=== PATIENT | male | born 1955 | race Caucasian/White ===

== ENCOUNTER → 2019-09-25 08:08 | Outpatient (CLI) | payer BC, SELFPAY ==
--- NOTE | 2019-09-25 08:10 | DI.RAD.S_ITS ---
PROCEDURE: XR LUMBAR SPINE 2-3V INDICATIONS: Back pain TECHNIQUE: 3 views of the lumbar spine were acquired. COMPARISON: None. FINDINGS: Bones: 5 [id number] vertebrae are present. There is normal bony alignment. No vertebral body compression fractures. No suspicious bony lesions. Severe chronic disc loss at L5-S1. Bilateral hip degenerative change, left greater than right. Soft tissues: Overlying bowel gas pattern is normal. No suspicious soft tissue calcifications. IMPRESSION: 1. Lower lumbar degenerative disc disease. 2. Bilateral hip degenerative arthritis, left greater than right. 3. No evidence acute bony abnormality of the lumbar spine. If clinical suspicion and/or symptoms persist, further assessment with repeat plain films, or advanced imaging (e.g., CT, MRI, or bone scan) may be helpful for further assessment. Dictated by: Norberto Schafer M.D. on 09/25/2019 at 9:40 Approved by: Norberto Schafer M.D. on 09/25/2019 at 9:41
[2019-09-25 09:49] LABS: Alanine Aminotransferase 22 IU/L (<50); Albumin 4.2 g/dL (3.5-5.0); Albumin Globulin Ratio 1.4 (1.0-2.8); Alkaline Phosphatase 48 U/L (38-126); Aspartate Aminotransferase 36 IU/L (17-59); BUN Creatinine Ratio 27.1 (6-22); Bilirubin Total 0.4 mg/dL (0.2-1.3); Blood Urea Nitrogen 19 mg/dL (9-20); Calcium 9.7 mg/dL (8.4-10.2); Carbon Dioxide 28 mmol/L (22-32); Chloride 103 mmol/L (98-107); Cholesterol 226 mg/dL (140-199); Estimated Glomerular Filt Rate > 60.0 mL/min (>60); Glucose 94 mg/dL (80-110); HDL Cholesterol 54 mg/dL (40-60); HEMOLYSIS < 15 (0-50); LDL Cholesterol Calculated 159 mg/dL (<100); Potassium 4.9 mmol/L (3.4-5.1); Sodium 140 mmol/L (137-145); Total Protein 7.2 g/dL (6.3-8.2); Triglycerides 64 mg/dL (35-150)
[2019-09-25 09:50] LABS: Hemoglobin A1C% w Est Avg Glu 5.3 % (4.0-6.0)
[2019-09-25 10:21] LABS: Prostate Specific Antigen Scrn 0.758 ng/mL (0.1-4.0)
== END ==
PROVIDERS: PCP Family Medicine; Referring Provider Family Medicine; Visit Provider Family Medicine
DX: M54.5 Low back pain (principal); Z76.89 Persons encountering health services in other specified circumstances
CPT/HCPCS: 36415; 72100; 80053; 80061; 83036; G0103

== ENCOUNTER 2020-05-04 17:22 | Observation (INO) | payer BC, SELFPAY ==
[2020-05-04] VITALS (13 sets, daily range): BP systolic 95–150; BP diastolic 51–91; PULSE 49–77; RESP 10–24; TEMP 35.7–36.6; O2SAT 94–100; BMI 21.7
[2020-05-04 17:46] LABS: Add Manual Diff / Slide Review NO; Basophils Absolute Auto 100 /uL (0-100); Basophils Percent Auto 0.7 % (0-2); Eosinophils Absolute Auto 200 /uL (0-450); Hematocrit 39.6 % (41-53); Hemoglobin 13.7 g/dL (13.5-17.5); Lymphocytes Absolute Auto 3400 /uL (1100-4500); Lymphocytes Percent Auto 36.4 % (25-40); Mean Corpuscular HGB Conc 34.5 % (30-36); Mean Corpuscular Hemoglobin 32.2 PG (26-34); Mean Corpuscular Volume 93.4 fL (80-100); Monocytes Absolute Auto 1100 /uL (0-900); Monocytes Percent Auto 11.4 % (3-14); Neutrophils Absolute Auto 4700 /uL (1500-7000); Neutrophils Percent Auto 49.5 % (50-75); Platelet Count 394 X10^3/uL (150-400); Red Blood Cell Count 4.24 X10^6/uL (4.5-5.9); Red Cell Distribution Width 13.9 % (11.6-14.8); White Blood Cell Count 9.4 X10^3/uL (4.5-11.0)
[2020-05-04 17:48] LABS: Prothrombin Time 11.8 SECONDS (10.1-12.7)
[2020-05-04 17:50] LABS: PTT Partial Thromboplastin Tim 28 SECONDS (26.4-36.2)
[2020-05-04 17:52] LABS: Alanine Aminotransferase 24 IU/L (<50); Albumin 4.3 g/dL (3.5-5.0); Albumin Globulin Ratio 1.3 (1.0-2.8); Alkaline Phosphatase 67 U/L (38-126); Aspartate Aminotransferase 35 IU/L (17-59); BUN Creatinine Ratio 21.5 (6-22); Bilirubin Total 0.5 mg/dL (0.2-1.3); Blood Urea Nitrogen 17 mg/dL (9-20); Calcium 9.5 mg/dL (8.4-10.2); Carbon Dioxide 25 mmol/L (22-32); Chloride 104 mmol/L (98-107); Estimated Glomerular Filt Rate > 60.0 mL/min (>60); Globulin 3.3 g/dL (1.7-4.1); Glucose 121 mg/dL (80-110); HEMOLYSIS < 15 (0-50); Lipase 74 U/L (23-300); Potassium 3.5 mmol/L (3.4-5.1); Sodium 139 mmol/L (137-145); Total Protein 7.6 g/dL (6.3-8.2)
[2020-05-04] MEDS: HYDROMORPHONE 1 MG INJ IV ×2 (17:53→18:58)
--- NOTE | 2020-05-04 17:54 | PC.NURSE ---
Patient placed in trendelenburg with ice pack to groin at this time per request from Dr. Del Rio.
--- NOTE | 2020-05-04 18:17 | ED.ABDPAIN ---
HPI - Abdominal Pain General Chief Complaint: Abdominal Pain Stated Complaint: Severe Abd Pain, Possible Hernia Time Seen by Provider: 05/04/20 18:15 Source: patient Mode of arrival: Ambulatory Limitations: no limitations History of Present Illness HPI narrative: 65-year-old male nonsmoker with noncontributory medical history presents with a chief complaint of severe right groin pain over the past few hours. He has a history of prior hernias requiring surgical repair and states this feels very similar to those. He admits to a large bulge in his groin that he 1st noticed few hours ago. He does not have any recall of any bulge or suggestion of pain over the past days weeks or months but he has been doing extensive heavy labor, lifting heavy objects and whatnot. He denies any fever or chills. He denies any nausea or vomiting. He is still passing gas. His last food or drink was at about 2:00 p.m.. He denies any exposure to persons known to have COVID. He has had bilateral inguinal hernia repair, his right hernia was repaired in 2012 and mesh was used. MD complaint: abdominal pain and other Onset (ago): hour(s) Pain Consistency: constant Location: RLQ Severity: severe Quality: cramping and aching Radiation: none Relieving factors: rest Exacerbating factors: movement Associated symptoms: denies other symptoms Related Data Home Medications Medication Instructions Recorded Confirmed cholecalciferol (vitamin D3) 1 tab PO DAILY 09/24/19 05/04/20 coenzyme Q10 1 tab PO DAILY 09/24/19 05/04/20 cyanocobalamin (vitamin B-12) 1 tab PO DAILY 09/24/19 05/04/20 multivitamin with iron 1 tab PO DAILY 09/24/19 05/04/20 vitamin E acetate 1 tab PO DAILY 09/24/19 05/04/20 Allergies Allergy/AdvReac Type Severity Reaction Status Date / Time No Known Drug Allergies Allergy Verified 05/04/20 19:54 Review of Systems Constitutional Constitutional: Denies chills, Denies fatigue, Denies fever(s), Denies frequent falls, Denies lethargy and Denies weakness Eyes Eyes: Denies change in vision, Denies eye discharge, Denies irritation and Denies loss of vision ENT Ears, Nose, Mouth, and Throat: Denies change in voice, Denies dizziness, Denies neck pain, Denies sore throat and Denies throat swelling Cardiovascular Cardiovascular: Denies chest pain, Denies irregular heart rhythm, Denies lightheadedness, Denies palpitations, Denies dyspnea, Denies dyspnea on exertion and Denies orthopnea Respiratory Respiratory: Denies cough, Denies dyspnea, Denies dyspnea on exertion and Denies wheezing Gastrointestinal Gastrointestinal: Reports abdominal pain, Denies change in bowel habits, Denies diarrhea, Denies nausea and Denies vomiting Musculoskeletal Musculoskeletal: Denies neck pain and Denies numbness Integumentary/Breasts Skin/Breast: Denies pruritus, Denies erythema, Denies rash and Denies wounds Neurologic Neurologic: Denies behavioral changes, Denies confusion, Denies dizziness, Denies frequent falls, Denies loss of vision, Denies numbness and Denies weakness Psychiatric Psychiatric: Denies anxiety, Denies behavioral changes, Denies confusion, Denies depression, Denies homicidal ideation and Denies suicidal ideation Endocrine Endocrine: Denies fatigue, Denies flushing and Denies palpitations Hematologic/Lymphatic Hematologic/Lymphatic: Denies easy bruising Allergic/Immunologic Allergic/Immunologic: Denies urticaria, Denies throat swelling and Denies wheezing Patient History Medical History Chicken pox (Resolved) Chronic lower back pain (Acute) Headache (Chronic ~2018) Kidney stones (Inactive ~2016) Shoulder pain (Chronic ~1989) Skin lesion (Acute) Wears glasses (Chronic) Surgical History Anesthesia (Resolved) H/O right wrist surgery (Resolved ~2006) History of hand surgery (Resolved ~2004) History of hernia surgery (Resolved) History of knee surgery (Resolved ~2000) History of shoulder surgery (Resolved) Ruptured spleen (Resolved ~1971) Family History Father Lung cancer Mother Stroke Brother Cancer Grandmother Stroke Social History household members: spouse Smoking Status: Never smoker alcohol intake: current substance use type: does not use Smoking Status: Never smoker Exam Initial Vital Signs Initial Vital Signs: Vital Signs Pulse Rate 74 05/04/20 17:32 Respiratory Rate 24 05/04/20 17:32 Blood Pressure 143/87 H 05/04/20 17:32 Pulse Oximetry 100 05/04/20 17:32 Course Course Decision to Admit Date: 05/04/20 Decision to Admit time: 18:38 Orders Ordered: ED Orders 05/04/20 17:35 Complete Blood Count AUTO DIFF Stat Comprehensive Metabolic Panel Stat Lipase Stat Partial Thromboplastin Time Stat Prothrombin Time INR Stat 05/04/20 17:50 EKG-12 Lead Stat 05/04/20 18:42 CT abdomen pelvis w con Stat 05/04/20 18:45 COVID19 -ED/INPAT/OR/L&D Stat Acetaminophen (Tylenol) 975 mg PO PACUNOW PRN PRN Reason: Pain, Mild (1-3) Lactated Ringer's (Lactated Ringers) 1,000 mls @ 120 mls/hr IV CONT AUGUST Last Admin: 05/04/20 22:08 Dose: 120 mls/hr Documented by: DAIANA Ketorolac Tromethamine (Toradol) 30 mg IV Q6HR PRN PRN Reason: Pain, Severe (7-10) Stop: 05/09/20 21:23 Naloxone HCl (Narcan) 0.2 mg IV Q2MIN PRN PRN Reason: Opiate Reversal Ondansetron HCl (Zofran) 4 mg IV Q8HR PRN PRN Reason: Nausea And Vomiting Oxycodone HCl (Percolone) 5 mg PO Q6HR PRN PRN Reason: Pain, Moderate (4-6) Last Admin: 05/05/20 00:34 Dose: 5 mg Documented by: RIMMA Discontinued Medications Bupivacaine HCl (Sensorcaine 0.25% (Pf)) 30 ml INJ NOW ONE Stop: 05/04/20 20:56 Last Admin: 05/04/20 20:55 Dose: 30 ml Documented by: SHRUTHI Fentanyl (Sublimaze) 0 mcg IV Q5MIN PRN PRN Reason: Pain, Severe (7-10) Hydromorphone HCl (Dilaudid) 1 mg IV NOW ONE Stop: 05/04/20 17:48 Last Admin: 05/04/20 17:53 Dose: 1 mg Documented by: MICAELA Hydromorphone HCl (Dilaudid) 1 mg IV NOW ONE Stop: 05/04/20 18:54 Last Admin: 05/04/20 18:58 Dose: 1 mg Documented by: TAVO Hydromorphone HCl (Dilaudid) 0 mg IV Q5MIN PRN PRN Reason: Pain, Mild (1-3) Lactated Ringer's (Lactated Ringers) 1,000 mls @ 42 mls/hr IV CONT AUGUST Last Infusion: 05/04/20 21:39 Dose: 0 mls/hr Documented by: Admin: 05/04/20 21:28 Dose: 42 mls/hr Documented by: Infusion: 05/04/20 21:28 Dose: 42 mls/hr Documented by: Admin: 05/04/20 20:01 Dose: 42 mls/hr Documented by: ALISTAIR Cefazolin Sodium/Dextrose (Ancef) 2 gm in 100 mls @ 200 mls/hr IV NOW ONE Stop: 05/04/20 20:55 Last Infusion: 05/04/20 20:11 Dose: 0 mls/hr Documented by: Admin: 05/04/20 20:05 Dose: 200 mls/hr Documented by: FELA Meperidine HCl (Demerol) 12.5 mg IV PACUNOW PRN PRN Reason: Mild pain or shivering Ondansetron HCl (Zofran) 4 mg IV NOW PRN PRN Reason: Nausea And Vomiting Oxycodone HCl (Percolone) 5 mg PO PACUNOW PRN PRN Reason: Mild or moderate pain Vital Signs Vital signs: Vital Signs - 8 hr 05/04/20 17:32 Pulse Rate 74 Respiratory Rate 24 Blood Pressure 143/87 H Pulse Oximetry 100 MDM - Abdominal Pain Lab Data Result diagrams: 05/04/20 17:35 05/04/20 17:35 Labs: Lab Results 05/04/20 05/04/20 05/04/20 Range/Units 17:35 17:35 17:35 WBC 9.4 (4.5-11.0) X10^3/uL RBC 4.24 L (4.5-5.9) X10^6/uL Hgb 13.7 (13.5-17.5) g/dL Hct 39.6 L (41-53) % MCV 93.4 (80-100) fL MCH 32.2 (26-34) PG MCHC 34.5 (30-36) % RDW 13.9 (11.6-14.8) % Plt Count 394 (150-400) X10^3/uL Neut % (Auto) 49.5 L (50-75) % Lymph % (Auto) 36.4 (25-40) % [place] % (Auto) 11.4 (3-14) % Eos % (Auto) 2.0 (2-4) % Baso % (Auto) 0.7 (0-2) % Neut # (Auto) 4700 (5557-3592) /uL Lymph # (Auto) 3400 (7412-3635) /uL [place] # (Auto) 1100 H (0-900) /uL Eos # (Auto) 200 (0-450) /uL Baso # (Auto) 100 (0-100) /uL PT 11.8 (10.1-12.7) SECONDS INR 1.0 (0.9-1.3) APTT 28 (26.4-36.2) SECONDS Sodium 139 (137-145) mmol/L Potassium 3.5 (3.4-5.1) mmol/L Chloride 104 (98-107) mmol/L Carbon Dioxide 25 (22-32) mmol/L BUN 17 (9-20) mg/dL Creatinine 0.79 (0.66-1.25) mg/dL Estimated GFR > 60.0 (>60) mL/min BUN/Creatinine Ratio 21.5 (6-22) Glucose 121 H (80-110) mg/dL Calcium 9.5 (8.4-10.2) mg/dL Total Bilirubin 0.5 (0.2-1.3) mg/dL AST 35 (17-59) IU/L ALT 24 (<50) IU/L Alkaline Phosphatase 67 (38-126) U/L Total Protein 7.6 (6.3-8.2) g/dL Albumin 4.3 (3.5-5.0) g/dL Globulin 3.3 (1.7-4.1) g/dL Albumin/Globulin Ratio 1.3 (1.0-2.8) Lipase 74 (23-300) U/L COVID-19 PCR (Negative) 05/04/20 Range/Units 18:45 WBC (4.5-11.0) X10^3/uL RBC (4.5-5.9) X10^6/uL Hgb (13.5-17.5) g/dL Hct (41-53) % MCV (80-100) fL MCH (26-34) PG MCHC (30-36) % RDW (11.6-14.8) % Plt Count (150-400) X10^3/uL Neut % (Auto) (50-75) % Lymph % (Auto) (25-40) % [place] % (Auto) (3-14) % Eos % (Auto) (2-4) % Baso % (Auto) (0-2) % Neut # (Auto) (7563-0405) /uL Lymph # (Auto) (0712-2054) /uL [place] # (Auto) (0-900) /uL Eos # (Auto) (0-450) /uL Baso # (Auto) (0-100) /uL PT (10.1-12.7) SECONDS INR (0.9-1.3) APTT (26.4-36.2) SECONDS Sodium (137-145) mmol/L Potassium (3.4-5.1) mmol/L Chloride (98-107) mmol/L Carbon Dioxide (22-32) mmol/L BUN (9-20) mg/dL Creatinine (0.66-1.25) mg/dL Estimated GFR (>60) mL/min BUN/Creatinine Ratio (6-22) Glucose (80-110) mg/dL Calcium (8.4-10.2) mg/dL Total Bilirubin (0.2-1.3) mg/dL AST (17-59) IU/L ALT (<50) IU/L Alkaline Phosphatase (38-126) U/L Total Protein (6.3-8.2) g/dL Albumin (3.5-5.0) g/dL Globulin (1.7-4.1) g/dL Albumin/Globulin Ratio (1.0-2.8) Lipase (23-300) U/L COVID-19 PCR Negative (Negative) Imaging Data CT scan - abdomen/pelvis: Radiologist's Impression: Chart Viewer Diagnostics DATE TYPE STATUS REF RANGE/AUTHOR Hx 05/04/20 18:42 Zhang Chance 09/25/19 08:10 Norberto Schafer Gary W 65, M0 1955 REG ER, [facility] ED R10 72.575kg Abdominal Pain Search Chart No Data to Display NF - Not included in interaction checking ONSET ~2018 ~1989 Today 17:32 Edgar Paris W 65 M [address] [address] [address] Scan Report Signed Patient: Edgar Paris WMR#: [id number] : [id number]:[id number] Age/Sex: 65 / MDate of Service: 05/04/20 Loc: ED Accession Number: [id number] Procedure: CT abdomen pelvis w con Ordering Provider: Johnnie Frank D.O. PROCEDURE: CT ABDOMEN PELVIS W CON INDICATIONS: severe RLQ pain, incarcerated hernia TECHNIQUE: After the administration of intravenous contrast, 5 mm thick sections acquired from the diaphragm to the symphysis. 5 mm coronal and sagittal reformats were acquired. For radiation dose reduction, the following was used: automated exposure control, adjustment of mA and/or kV according to patient size. COMPARISON: None. FINDINGS: Image quality: Excellent. ABDOMEN: Lung bases: Bibasilar dependent atelectasis/scarring are seen. Heart size is enlarged, no pericardial effusion. Solid organs: Liver is enlarged and show normal enhancement.. Gallbladder is within normal limits. Biliary system is non dilated. Pancreas enhances normally. Spleen is not visualized which may represent prior splenectomy possible 1.8 centimeter splenule is noted in left upper quadrant abdomen. No adrenal nodules. Kidneys demonstrate normal size and enhancement, without hydronephrosis. 3 millimeter nonobstructing stone in midpole of left kidney is seen. Bilateral peripelvic cysts are noted. Peritoneum and bowel: There is significant fecal stasis in ascending colon. Fluid distended small bowel loops are noted in right lower quadrant abdomen/pelvis with fluid distended bowel loops extending to the level of right inguinal herniation sac. There is no peritoneal free fluid or free air. No abnormal bowel wall thickening. Nodes and vessels: No retroperitoneal or mesenteric adenopathy by size criteria. Aorta and inferior vena cava are normal in size. Miscellaneous: No ventral hernias. PELVIS: Genitourinary: Bladder wall thickness is normal. Miscellaneous: No inguinal lymphadenopathy. Right inguinal hernia is seen containing a segment of dilated small bowel loop with questionable wall thickening and adjacent fat stranding. Decompressed of small-bowel loops exiting the herniation sac is noted with fluid distended bowel loops proximal to the herniation sac concerning for incarcerated hernia. Bones: No suspicious bony lesions. No vertebral body compression fractures. IMPRESSION: 1. Right inguinal hernia containing a segment of fluid distended small bowel loops and mild mesenteric fat stranding within herniation sac. Finding is concerning for developing incarcerated right inguinal hernia. No other area of abnormal bowel wall thickening. No free fluid or free air. 2. Fecal stasis in right colon. 3. Suggestion of prior splenectomy. 1.8 centimeter splenule is noted in left upper quadrant abdomen. Hepatomegaly, no discrete hepatic lesion. 4. Nonobstructing left renal calculus. No hydronephrosis. 5. Bibasilar dependent atelectasis. Dictated by: Zhang Chance M.D. on 05/04/2020 at 19:23 Approved by: Zhang Chance M.D. on 05/04/2020 at 19:28 Discharge Plan Departure Patient Disposition: Admitted to Surgery Clinical Impression: Incarcerated inguinal hernia Discharge Date/Time: 05/04/20 19:50 Admit Date/Time: 05/04/20 19:37 Admit Provider: Calin Pickard
--- NOTE | 2020-05-04 18:42 | DI.CT.S_ITS ---
PROCEDURE: CT ABDOMEN PELVIS W CON INDICATIONS: severe RLQ pain, incarcerated hernia TECHNIQUE: After the administration of intravenous contrast, 5 mm thick sections acquired from the diaphragm to the symphysis. 5 mm coronal and sagittal reformats were acquired. For radiation dose reduction, the following was used: automated exposure control, adjustment of mA and/or kV according to patient size. COMPARISON: None. FINDINGS: Image quality: Excellent. ABDOMEN: Lung bases: Bibasilar dependent atelectasis/scarring are seen. Heart size is enlarged, no pericardial effusion. Solid organs: Liver is enlarged and show normal enhancement.. Gallbladder is within normal limits. Biliary system is non dilated. Pancreas enhances normally. Spleen is not visualized which may represent prior splenectomy possible 1.8 centimeter splenule is noted in left upper quadrant abdomen. No adrenal nodules. Kidneys demonstrate normal size and enhancement, without hydronephrosis. 3 millimeter nonobstructing stone in midpole of left kidney is seen. Bilateral peripelvic cysts are noted. Peritoneum and bowel: There is significant fecal stasis in ascending colon. Fluid distended small bowel loops are noted in right lower quadrant abdomen/pelvis with fluid distended bowel loops extending to the level of right inguinal herniation sac. There is no peritoneal free fluid or free air. No abnormal bowel wall thickening. Nodes and vessels: No retroperitoneal or mesenteric adenopathy by size criteria. Aorta and inferior vena cava are normal in size. Miscellaneous: No ventral hernias. PELVIS: Genitourinary: Bladder wall thickness is normal. Miscellaneous: No inguinal lymphadenopathy. Right inguinal hernia is seen containing a segment of dilated small bowel loop with questionable wall thickening and adjacent fat stranding. Decompressed of small-bowel loops exiting the herniation sac is noted with fluid distended bowel loops proximal to the herniation sac concerning for incarcerated hernia. Bones: No suspicious bony lesions. No vertebral body compression fractures. IMPRESSION: 1. Right inguinal hernia containing a segment of fluid distended small bowel loops and mild mesenteric fat stranding within herniation sac. Finding is concerning for developing incarcerated right inguinal hernia. No other area of abnormal bowel wall thickening. No free fluid or free air. 2. Fecal stasis in right colon. 3. Suggestion of prior splenectomy. 1.8 centimeter splenule is noted in left upper quadrant abdomen. Hepatomegaly, no discrete hepatic lesion. 4. Nonobstructing left renal calculus. No hydronephrosis. 5. Bibasilar dependent atelectasis. Dictated by: Zhang Chance M.D. on 05/04/2020 at 19:23 Approved by: Zhang Chance M.D. on 05/04/2020 at 19:28
[2020-05-04 19:22] LABS: COVID19 -Nasal RAPID Negative (Negative)
--- NOTE | 2020-05-04 19:40 | PM.HP.1 ---
History of Present Illness History of Present Illness Date Patient Seen: 05/04/20 Time Patient Seen: 19:41 Chief complaint: Severe Abd Pain, Possible Hernia Narrative: This is a 65-year-old man seen in consultation for a incarcerated right inguinal hernia. He has history of a prior open inguinal hernia repair with mesh 2012 and he presents with several hours of severe right groin pain. Mild nausea no vomiting is passing flatus. CT demonstrates a loop of small bowel within the right groin. It was unable to be manually reduced in the emergency room. 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 Nonsmoker not on anticoagulation no major cardio pulmonary of renal disease. Patient History Medical History Chicken pox (Resolved) Chronic lower back pain (Acute) Headache (Chronic ~2018) Kidney stones (Inactive ~2016) Shoulder pain (Chronic ~1989) Skin lesion (Acute) Wears glasses (Chronic) Surgical History Anesthesia (Resolved) H/O right wrist surgery (Resolved ~2006) History of hand surgery (Resolved ~2004) History of hernia surgery (Resolved) History of knee surgery (Resolved ~2000) History of shoulder surgery (Resolved) Ruptured spleen (Resolved ~1971) Family & Social History Family History Father Lung cancer Mother Stroke Brother Cancer Grandmother Stroke Tobacco & Substance use: Smoking Status Never smoker alcohol intake current Meds Home Medications and Allergies Home Medications Medication Instructions Recorded Confirmed Type cholecalciferol (vitamin D3) PO 09/24/19 10/21/19 History coenzyme Q10 PO 09/24/19 10/21/19 History cyanocobalamin (vitamin B-12) PO 09/24/19 10/21/19 History multivitamin with iron PO 09/24/19 10/21/19 History vitamin E acetate PO 09/24/19 10/21/19 History Allergies Allergy/AdvReac Type Severity Reaction Status Date / Time No Known Drug Allergies Allergy Verified 10/21/19 08:15 Review of Systems Review of Systems Narrative: A 10 point review of systems is negative except as noted in the HPI Exam Vital Signs (past 8 hours): - 05/04/20 17:32 Pulse Rate 74 Respiratory Rate 24 Blood Pressure 143/87 H Pulse Oximetry 100 Oxygen Delivery Method Room Air Narrative Exam Narrative: General-no acute distress, well nourished HEENT-moist mucous membranes, no scleral icterus Neck-supple, no lymphadenopathy Chest- non labored respirations, clear to auscultation bilaterally Cardiac-regular rate no peripheral edema Abdomen-tender right groin non reducible right inguinal hernia. Extremities-warm, well perfused Neurological-alert and oriented, no focal deficits Objective Labs Result Diagrams: 05/04/20 17:35 05/04/20 17:35 Labs: Laboratory Results - last 24 hr 05/04/20 05/04/20 05/04/20 17:35 17:35 17:35 WBC 9.4 RBC 4.24 L Hgb 13.7 Hct 39.6 L MCV 93.4 MCH 32.2 MCHC 34.5 RDW 13.9 Plt Count 394 Neut % (Auto) 49.5 L Lymph % (Auto) 36.4 [place] % (Auto) 11.4 Eos % (Auto) 2.0 Baso % (Auto) 0.7 Neut # (Auto) 4700 Lymph # (Auto) 3400 [place] # (Auto) 1100 H Eos # (Auto) 200 Baso # (Auto) 100 PT 11.8 INR 1.0 APTT 28 Sodium 139 Potassium 3.5 Chloride 104 Carbon Dioxide 25 BUN 17 Creatinine 0.79 Estimated GFR > 60.0 BUN/Creatinine Ratio 21.5 Glucose 121 H Calcium 9.5 Total Bilirubin 0.5 AST 35 ALT 24 Alkaline Phosphatase 67 Total Protein 7.6 Albumin 4.3 Globulin 3.3 Albumin/Globulin Ratio 1.3 Lipase 74 COVID-19 PCR 05/04/20 18:45 WBC RBC Hgb Hct MCV MCH MCHC RDW Plt Count Neut % (Auto) Lymph % (Auto) [place] % (Auto) Eos % (Auto) Baso % (Auto) Neut # (Auto) Lymph # (Auto) [place] # (Auto) Eos # (Auto) Baso # (Auto) PT INR APTT Sodium Potassium Chloride Carbon Dioxide BUN Creatinine Estimated GFR BUN/Creatinine Ratio Glucose Calcium Total Bilirubin AST ALT Alkaline Phosphatase Total Protein Albumin Globulin Albumin/Globulin Ratio Lipase COVID-19 PCR Negative Assessment & Plan Assessment and plan (1) Incarcerated inguinal hernia: Status: Acute Assessment & Plan narrative: 65-year-old man history of a right open inguinal hernia repair here with a recurrent incarcerated right inguinal hernia. Hernia is non reducible. Reviewed his CT scan which demonstrates a loop of small bowel within the right groin. I recommend that we proceed to the operating room for a open right inguinal hernia repair. I told him that if the intestine is compromised he may require resection and if this is the case we would be unable to use mesh in the repair. I also told him that because he has previous mesh the groin that the repair/operation is more difficult with increased risk of chronic pain, recurrence, damage to surrounding structures. I told him there is a risk I am unable to complete the operation through the groin and he may require a laparotomy. His questions have been answered he is in agreement with this plan will proceed to the operating room and he will remain under observation following the procedure.
[2020-05-04] MEDS: LACTATED RINGERS 1,000 ML 42 ML IV ×2 (20:01→21:28)
[2020-05-04] MEDS: CEFAZOLIN 2 GM/100 ML FROZ.PIGGY IV (20:05)
--- NOTE | 2020-05-04 20:22 | SUR.OPER ---
Supine on padded OR bed, head on pillow, arms secured on padded arm boards at <90 degrees abduction, legs uncrossed, safety belt at thigh, tape over blanket over lower legs.
[2020-05-04] MEDS: BUPIVACAINE 0.25% (PF) VIAL 30 ML INJ (20:55)
--- NOTE | 2020-05-04 21:24 | P.OP_ITS ---
Operative Date/Time/Diagnoses Date of procedure: 05/04/20 Time of procedure: 21:24 Pre-op diagnosis: Recurrent incarcerated right inguinal hernia Post-op diagnosis: same Procedure & Clinicians Procedure: Open right inguinal hernia repair Same procedure as scheduled: Yes Indications: 65-year-old male history of open right inguinal hernia repair with mesh presents with acute right inguinal hernia incarceration. Surgeon: Calin Pickard Click Yes if Unassisted: Yes Anesthesia Type: General Operative Notes Findings: Direct floor defect. Previous mesh entirely incorporated into the inguinal canal fusing the cord to the floor of the canal Specimen(s): none sent Procedure in detail: The patient was placed supine on the table and bilateral lower extremity compression devices were applied. Anesthesia was induced they were intubated with an LMA and received 2g of Ancef. A time-out was performed. They were prepped and draped in sterile fashion. The right external inguinal ring and the anterior superior iliac crest were identified and marked. 1 finger breath above the inguinal ligament the skin was infiltrated with 0.25% bupivacaine. The skin incision was made here and the subcutaneous tissues were divided with electrocautery exposing the external oblique aponeurosis which was then opened along the direction of its fibers. Using blunt dissection the internal oblique aporneurosis was from the external oblique upper leaflet. The anatomy was exceptionally distorted within the inguinal canal secondary to the previous use of mesh. The cord was entirely fused to the floor of the inguinal canal. I spent a great deal of time trying to carefully dissect the cord off of the mesh but was unable to do so safely and I was unable to identify the indiviual cord structures. I was able to comfortably reduce the hernia which appeared to be a direct floor defect. Rather than damage the cord content I abandoned been further attempts to dissect out the cord from the inguinal canal. I was able to reduce the direct floor defect by reapproximating the internal oblique to the shelving edge of the inguinal ligament using 0 Ethibond suture. I then closed the external oblique aponeurosis in the direction of its fibers. The subcutaneous tissues were reapproximated with 3 0 Vicryl skin closed with 4 0 Monocryl followed by the application of Dermabond. At the end of the operation I ensured that both testicles were within the scrotum. The sponge instrument count at the end operation was correct. The p atient emerged from anesthesia was extubated and transferred to the postoperative care unit in stable condition. A total of 30 ml of of 0.25% bupivicaine was used to infiltrate the skin. Complications: none Post-operative Condition: stable Disposition: observation
[2020-05-04] MEDS: LACTATED RINGERS 1,000 ML 120 ML IV (22:08)
[2020-05-05 00:06] VITALS: BP 116/64; PULSE 59; RESP 16; TEMP 36.3; O2SAT 97
[2020-05-05 00:30] VITALS: O2SAT 97
[2020-05-05] MEDS: OXYCODONE IR 5 MG TABLET PO (00:34)
[2020-05-05 05:00] VITALS: O2SAT 95
[2020-05-05] MEDS: LACTATED RINGERS 1,000 ML 120 ML IV (06:00)
[2020-05-05 06:02] VITALS: BP 93/54; PULSE 58; RESP 16; TEMP 36.3; O2SAT 95
[2020-05-05 07:47] VITALS: RESP 16; O2SAT 95
--- NOTE | 2020-05-05 10:05 | PC.NURSE ---
pt with no c/o pain/discomfort - skin intact, RLQ incision held with dermabond- reviewed all d/c plans and follow up appts/concerns - discharged to home at this time
--- NOTE | 2020-05-05 13:19 | PM.DS.1 ---
History of Present Illness History of Present Illness Chief complaint: Severe Abd Pain, Possible Hernia Narrative: This is a 65-year-old man seen in consultation for a incarcerated right inguinal hernia. He has history of a prior open inguinal hernia repair with mesh 2012 and he presents with several hours of severe right groin pain. Mild nausea no vomiting is passing flatus. CT demonstrates a loop of small bowel within the right groin. It was unable to be manually reduced in the emergency room. 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 Nonsmoker not on anticoagulation no major cardio pulmonary of renal disease. Discharge Providers Provider Date of admission: 05/04/20 19:37 Discharge Date: 05/05/20 Primary care physician: Clayton Morales DO Discharge provider: Calin Pickard MD Summary Hospital Course Discharge Diagnosis: Incarcerated recurrent right inguinal hernia Hospital Course: Patient underwent a open right inguinal hernia repair 05/04/2020. There was no ischemic bowel he had a direct hernia defect which was repaired primarily. On the date of discharge 05/05 he is feeling well pain is well controlled he is tolerating a diet without issue. Status at Discharge Cognitive/behavioral status at discharge: oriented Exam Vital Signs (past 8 hours): - 05/05/20 06:02 05/05/20 07:47 Temperature 97.4 F L Pulse Rate 58 L Respiratory Rate 16 16 Blood Pressure 93/54 L Pulse Oximetry 95 95 Oxygen Delivery Method Room Air Oxygen Flow Rate 0 Narrative Exam Narrative: General adult male alert oriented no acute distress Chest nonlabored respirations Abdomen soft appropriately tender to palpation right groin incision clean dry intact no palpable hernia Objective Labs Result Diagrams: 05/04/20 17:35 05/04/20 17:35 Labs: Laboratory Results - last 24 hr 05/04/20 05/04/20 05/04/20 17:35 17:35 17:35 WBC 9.4 RBC 4.24 L Hgb 13.7 Hct 39.6 L MCV 93.4 MCH 32.2 MCHC 34.5 RDW 13.9 Plt Count 394 Neut % (Auto) 49.5 L Lymph % (Auto) 36.4 [place] % (Auto) 11.4 Eos % (Auto) 2.0 Baso % (Auto) 0.7 Neut # (Auto) 4700 Lymph # (Auto) 3400 [place] # (Auto) 1100 H Eos # (Auto) 200 Baso # (Auto) 100 PT 11.8 INR 1.0 APTT 28 Sodium 139 Potassium 3.5 Chloride 104 Carbon Dioxide 25 BUN 17 Creatinine 0.79 Estimated GFR > 60.0 BUN/Creatinine Ratio 21.5 Glucose 121 H Calcium 9.5 Total Bilirubin 0.5 AST 35 ALT 24 Alkaline Phosphatase 67 Total Protein 7.6 Albumin 4.3 Globulin 3.3 Albumin/Globulin Ratio 1.3 Lipase 74 COVID-19 PCR 05/04/20 18:45 WBC RBC Hgb Hct MCV MCH MCHC RDW Plt Count Neut % (Auto) Lymph % (Auto) [place] % (Auto) Eos % (Auto) Baso % (Auto) Neut # (Auto) Lymph # (Auto) [place] # (Auto) Eos # (Auto) Baso # (Auto) PT INR APTT Sodium Potassium Chloride Carbon Dioxide BUN Creatinine Estimated GFR BUN/Creatinine Ratio Glucose Calcium Total Bilirubin AST ALT Alkaline Phosphatase Total Protein Albumin Globulin Albumin/Globulin Ratio Lipase COVID-19 PCR Negative Discharge Plan Discharge Plan Patient Disposition: Home Discharge orders & Medications Prescriptions: New docusate sodium [Colace] 100 mg capsule 100 mg PO BID Qty: 40 RF: 0 oxycodone 5 mg tablet 5 mg PO Q6H PRN (Reason: pain) Qty: 30 RF: 0 acetaminophen [Tylenol] 325 mg capsule 650 mg PO QID PRN (Reason: pain) Qty: 60 RF: 0 Continued cholecalciferol (vitamin D3) 1 tab PO DAILY RF: 0 vitamin E acetate 1 tab PO DAILY RF: 0 coenzyme Q10 1 tab PO DAILY RF: 0 multivitamin with iron 1 tab PO DAILY RF: 0 cyanocobalamin (vitamin B-12) 1 tab PO DAILY RF: 0 Follow up/Referrals: Calin Pickard MD [Physician] - Clayton Morales DO [Primary Care Provider] - Diet/Activity/Treatments Diet: Regular Activity: No lifting >20 lbs x 6 weeks. Walking only for exercise for 6 weeks. No [address] while taking narcotics. Visit Report/Discharge Packet Instructions: DI for Groin Hernia Visit Report Forms: Patient Portal/API, Stroke Signs & Symptoms Discharge Data Primary Care Provider: Clayton Morales Attending Provider: Calin Pickard Admit Date/Time: 05/04/20 19:37 Discharges patient from system. Discharge Date/Time: 05/05/20 09:15
== END 2020-05-05 09:15 | disposition home or self-care (01) ==
LOC: ED 19:38 → AC 19:38 → ICU 21:53
PROVIDERS: Emergency Medicine; Admitting Provider Surgery; Emergency Provider Emergency Medicine; PCP Family Medicine; Visit Provider Surgery
PROC: (CPT 49521; principal; 2020-05-04 19:45)
DX: K40.31 Unilateral inguinal hernia, with obstruction, without gangrene, recurrent (principal); Z11.59 Encounter for screening for other viral diseases
CPT/HCPCS: 49521; 36415; 74177; 80053; 83690; 85025; 85610; 85730; 87635; 93005; 93010; 96361; 96374; 96376; 99219; 99284; G0378; J0330; J0690; J1100; J1170; J1885; J2405; J2704; J3010; Q9967

== ENCOUNTER → 2020-05-13 15:44 | Outpatient (CLI) | payer BC, SELFPAY ==
[2020-05-04 21:55] VITALS: BMI 21.7
[2020-05-13 17:30] LABS: TSH w/ Reflex to FT4 2.74 uIU/mL (0.47-4.68)
== END ==
PROVIDERS: PCP Family Medicine; Referring Provider Family Medicine; Visit Provider Family Medicine
DX: R53.83 Other fatigue (principal); R63.4 Abnormal weight loss
CPT/HCPCS: 36415; 84443

== ENCOUNTER → 2020-09-04 09:08 | Outpatient (CLI) | payer BC, SELFPAY ==
[2020-05-04 21:55] VITALS: BMI 21.7
[2020-09-04 10:43] LABS: Add Manual Diff / Slide Review NO; Basophils Absolute Auto 100 /uL (0-100); Basophils Percent Auto 1.3 % (0-2); Eosinophils Absolute Auto 300 /uL (0-450); Eosinophils Percent Auto 5.1 % (2-4); Hematocrit 39.5 % (41-53); Hemoglobin 13.4 g/dL (13.5-17.5); Lymphocytes Absolute Auto 2000 /uL (1100-4500); Mean Corpuscular HGB Conc 33.9 % (30-36); Mean Corpuscular Hemoglobin 31.8 PG (26-34); Mean Corpuscular Volume 93.8 fL (80-100); Monocytes Absolute Auto 700 /uL (0-900); Monocytes Percent Auto 13.5 % (3-14); Neutrophils Absolute Auto 2200 /uL (1500-7000); Neutrophils Percent Auto 42.1 % (50-75); Platelet Count 427 X10^3/uL (150-400); Red Blood Cell Count 4.21 X10^6/uL (4.5-5.9); Red Cell Distribution Width 13.5 % (11.6-14.8); White Blood Cell Count 5.3 X10^3/uL (4.5-11.0)
[2020-09-04 10:51] LABS: Alanine Aminotransferase 22 IU/L (<50); Albumin 4.4 g/dL (3.5-5.0); Albumin Globulin Ratio 1.5 (1.0-2.8); Alkaline Phosphatase 59 U/L (38-126); Aspartate Aminotransferase 37 IU/L (17-59); BUN Creatinine Ratio 28.4 (6-22); Bilirubin Total 0.5 mg/dL (0.2-1.3); Blood Urea Nitrogen 19 mg/dL (9-20); Calcium 9.4 mg/dL (8.4-10.2); Carbon Dioxide 30 mmol/L (22-32); Chloride 104 mmol/L (98-107); Cholesterol 231 mg/dL (140-199); Estimated Glomerular Filt Rate > 60.0 mL/min (>60); Glucose 94 mg/dL (80-110); HDL Cholesterol 59 mg/dL (40-60); HEMOLYSIS < 15 (0-50); LDL Cholesterol Calculated 160 mg/dL (<100); Potassium 4.5 mmol/L (3.4-5.1); Sodium 138 mmol/L (137-145); Total Protein 7.4 g/dL (6.3-8.2); Triglycerides 62 mg/dL (35-150)
[2020-09-04 11:34] LABS: TSH w/ Reflex to FT4 2.15 uIU/mL (0.47-4.68)
== END ==
PROVIDERS: PCP Family Medicine; Referring Provider Family Medicine; Visit Provider Family Medicine
DX: R63.4 Abnormal weight loss (principal); Z13.220 Encounter for screening for lipoid disorders; Z13.228 Encounter for screening for other metabolic disorders; Z13.29 Encounter for screening for other suspected endocrine disorder
CPT/HCPCS: 36415; 80053; 80061; 84443; 85025

== ENCOUNTER → 2020-09-29 09:34 | Outpatient (CLI) | payer BC, SELFPAY ==
[2020-05-04 21:55] VITALS: BMI 21.7
--- NOTE | 2020-09-29 10:51 | DI.CT.S_ITS ---
PROCEDURE: CT KIDNEY URETER BLADDER (KUB) INDICATIONS: CALCULUS OF KIDNEY TECHNIQUE: Noncontrast 5 mm thick sections acquired from the diaphragms to the symphysis. 5 mm thick coronal and sagittal reformats were then performed. For radiation dose reduction, the following was used: automated exposure control, adjustment of mA and/or kV according to patient size. COMPARISON: [facility], CT, CT ABDOMEN PELVIS W CON, 05/04/2020, 19:05. FINDINGS: Image quality: Excellent. Lung bases: Lung bases are clear. Heart size is normal. Urinary system: There is a 4 mm nonobstructing stone in left kidney. Both kidneys are normal in size. Bilateral mild hydronephrosis with normal caliber of ureter. No ureteral stones. Both ureters appear non-dilated throughout their expected courses. Bladder wall thickness is normal; no calcified bladder stones. Other solid organs: Liver is normal in size. Gallbladder is normal. Pancreas is normal in contours. Spleen is absent. Small splenules are noted in left upper abdomen. No adrenal nodules. Peritoneum and bowel: Unenhanced bowel loops demonstrate normal wall thickness and caliber. No free fluid or air. Nodes and vessels: No retroperitoneal or mesenteric adenopathy by size criteria. Aorta and inferior vena cava are normal in caliber. Abdominal wall: No ventral hernias. Pelvis: No free pelvic fluid. No adenopathy. Bilateral fat containing inguinal hernias are noted. There is hydrocele in scrotum, right greater than left. Bones: No suspicious bony lesions. No vertebral body compression fractures. Degenerative changes in lumbar spine. IMPRESSION: 1. A 3 mm nonobstructive stone in left kidney. 2. Mild bilateral hydronephrosis. There is normal caliber of ureters bilaterally. The CT findings suggest mild bilateral UPJ obstruction. If clinically indicated, radionuclide renogram with Lasix is recommended for further evaluation. 3. Bilateral fat containing inguinal hernias. The right inguinal hernia no longer contains small intestine. Dictated by: González Berg M.D. on 09/29/2020 at 17:07 Approved by: González Berg M.D. on 09/29/2020 at 17:13
== END ==
PROVIDERS: PCP Family Medicine; Referring Provider Family Medicine; Visit Provider Family Medicine
DX: N20.0 Calculus of kidney (principal); N13.30 Unspecified hydronephrosis; K40.20 Bilateral inguinal hernia, without obstruction or gangrene, not specified as recurrent
CPT/HCPCS: 74176

== ENCOUNTER 2020-11-12 20:13 | Emergency (ER) | payer BC, SELFPAY ==
[2020-09-29 10:17] VITALS: BMI 21.7
[2020-11-12] VITALS (8 sets, daily range): BP systolic 139–184; BP diastolic 79–99; PULSE 60–92; RESP 18–27; TEMP 36.4; O2SAT 92–100; BMI 22.6
[2020-11-12] MEDS: HYDROMORPHONE 1 MG INJ IV ×2 (20:39→22:03)
--- NOTE | 2020-11-12 20:41 | ED.ABDPAIN ---
HPI - Abdominal Pain General Chief Complaint: Abdominal Pain Stated Complaint: thinks hernia opened up Time Seen by Provider: 11/12/20 20:36 Source: patient Mode of arrival: Ambulatory Limitations: no limitations History of Present Illness HPI narrative: This is a 65-year-old male who comes to the emergency department complaint of right inguinal hernia. Patient states he has had surgery 3 times on that side. He states today he noticed an increased lump and significant pain that has increased this evening. He has not had fevers. He has been nauseous but not vomiting. He does have abdominal pain. He had a bowel movement yesterday but has not had 1 since. He has not passed any flatus for several hours. Patient states he has had splenectomy secondary to trauma, multiple orthopedic surgeries and multiple hernia repairs. He has not any regular medications. He denies tobacco. He had 1 alcoholic drink this evening. He denies any illicit. He states Dr. Pickard performed his last hernia repair. Related Data Home Medications Medication Instructions Recorded Confirmed cholecalciferol (vitamin D3) 1 tab PO DAILY 09/24/19 09/04/20 coenzyme Q10 1 tab PO DAILY 09/24/19 09/04/20 cyanocobalamin (vitamin B-12) 1 tab PO DAILY 09/24/19 09/04/20 multivitamin with iron 1 tab PO DAILY 09/24/19 09/04/20 vitamin E acetate 1 tab PO DAILY 09/24/19 09/04/20 Allergies Allergy/AdvReac Type Severity Reaction Status Date / Time No Known Drug Allergies Allergy Verified 09/23/20 08:08 Review of Systems Review of Systems ROS Unobtainable: All systems reviewed & are unremarkable except as noted in HPI and below Patient History Medical History Chicken pox Chronic lower back pain Ear pain Headache (~2018) Hyperlipidemia Kidney stones (~2016) Routine history and physical examination of adult Shoulder pain (~1989) Skin lesion Wears glasses Weight loss Surgical History Anesthesia H/O right wrist surgery (~2006) History of hand surgery (~2004) History of hernia surgery History of knee surgery (~2000) History of lithotripsy History of shoulder surgery Ruptured spleen (~1971) Family History Father Lung cancer Mother Stroke Brother Cancer Grandmother Stroke Social History household members: spouse Smoking Status: Never smoker alcohol intake: current substance use type: does not use Smoking Status: Never smoker alcohol intake frequency: a few times a week Exam Narrative Exam Narrative: GENERAL: Alert and oriented x three, thin male in moderate distress. HEENT: Head normocephalic, atraumatic, EOMI, pupils reactive, face symmetric, moist mucous membranes NECK: Supple, full range of motion CARDIOVASCULAR: Regular rate and rhythm without murmurs, rubs or gallops. RESPIRATORY: Breath sounds equal bilaterally, no wheezes rales or rhonchi. ABDOMEN: Soft, mild lower abdominal tenderness, patient has in large area of fullness that feels tight in the right inguinal area. Patient is quite tender. Unable to reduce in the department. Normoactive bowel sounds all 4 quadrants. No guarding or rebound, rigidity, no mass : No CVA tenderness EXTREMITIES: Normal range of motion, no clubbing or edema. Neurovascularly intact NEUROLOGICAL: Cranial nerves II through XII grossly intact. Moving all extremities SKIN: Warm, dry, no petechiae, no rashes or lesions. Initial Vital Signs Initial Vital Signs: Vital Signs Temperature 97.6 F 11/12/20 20:20 Pulse Rate 60 11/12/20 20:20 Respiratory Rate 18 11/12/20 20:20 Blood Pressure 184/99 H 11/12/20 20:20 Pulse Oximetry 100 11/12/20 20:20 Course Orders Ordered: ED Orders 11/12/20 20:28 COVID19 - ADMIT (911 EMERGENCY DISPATCHER swab/PCR) Stat Complete Blood Count AUTO DIFF Stat Comprehensive Metabolic Panel Stat Lipase Stat 11/12/20 20:40 XR abdomen min 2V Stat 11/12/20 21:39 CT abdomen pelvis w con Stat Sodium Chloride (Normal Saline 0.9%) 1,000 mls @ 200 mls/hr IV CONT AUGUST Last Infusion: 11/13/20 04:32 Dose: 0 mls/hr Documented by: Admin: 11/13/20 00:04 Dose: 200 mls/hr Documented by: MCKENZIE Discontinued Medications Hydromorphone HCl (Hydromorphone 1 Mg Inj) 1 mg IV NOW ONE Stop: 11/12/20 20:36 Last Admin: 11/12/20 20:39 Dose: 1 mg Documented by: JIA Hydromorphone HCl (Hydromorphone 1 Mg Inj) 1 mg IV NOW ONE Stop: 11/12/20 21:57 Last Admin: 11/12/20 22:03 Dose: 1 mg Documented by: JIA Hydromorphone HCl (Hydromorphone 1 Mg Inj) 1 mg IV NOW ONE Stop: 11/13/20 04:29 Last Admin: 11/13/20 04:31 Dose: 1 mg Documented by: EZRA Sodium Chloride (Normal Saline 0.9%) 1,000 mls @ 1,000 mls/hr IV BOLUS ONE Stop: 11/12/20 21:39 Last Infusion: 11/12/20 21:55 Dose: 0 mls/hr Documented by: Admin: 11/12/20 20:44 Dose: 1,000 mls/hr Documented by: JIA Ondansetron HCl (Ondansetron 4 Mg/2 Ml Inj) 4 mg IV NOW ONE Stop: 11/13/20 04:36 Last Admin: 11/13/20 04:37 Dose: 4 mg Documented by: EZRA Reevaluation(s) Reevaluation #1: Unable to successfully reduce hernia in the room. Patient does note that fullness has been present on both sides chronically. Time: 21:33 Reevaluation #2: Patient updated on plan for transfer. All questions asked. Time: 03:19 Consultations Consultation #1: Spoke with Dr. Pickard who feels the this is the patient's recurrent episode that he likely needs specialty care beyond what we can provide is this is a recurrent issue that they have unsuccessfully repaired. He recommends CT abdomen pelvis and transfer to a larger facility such as tertiary care such as [facility]. Time: 21:41 Consultation #2: Dr. Ricci from general surgery. Accepts for transfer but would like to speak with the Dr. Pickard our surgeon for additional information about prior repair. Time: 03:11 Consultation #3: Dr. Randle from [facility]. Case discussed, aware of discussion with Dr. Ricci and plan for transfer to [facility]. Vital Signs Vital signs: Vital Signs - 8 hr 11/12/20 21:20 11/12/20 21:30 11/12/20 22:00 Pulse Rate 74 79 76 Respiratory Rate 24 20 20 Blood Pressure 145/79 H 163/89 H Pulse Oximetry 97 94 98 11/12/20 22:21 11/12/20 22:30 11/12/20 23:00 Pulse Rate 84 92 H 69 Respiratory Rate 18 18 21 Blood Pressure 140/85 152/79 H 139/84 Pulse Oximetry 92 93 11/12/20 23:30 11/13/20 00:00 11/13/20 00:30 Pulse Rate 73 71 57 L Respiratory Rate 27 H 21 17 Blood Pressure 149/92 H 154/90 H 144/73 H Pulse Oximetry 95 11/13/20 01:00 11/13/20 01:30 11/13/20 01:31 Pulse Rate 54 L 53 L 52 L Respiratory Rate 16 18 15 Blood Pressure 132/82 152/77 H Pulse Oximetry 96 97 97 11/13/20 02:00 11/13/20 02:30 11/13/20 03:00 Pulse Rate 51 L 53 L 62 Respiratory Rate 19 14 31 H Blood Pressure 117/83 Pulse Oximetry 97 96 92 11/13/20 03:30 Pulse Rate 56 L Respiratory Rate 16 Blood Pressure 136/83 Pulse Oximetry 97 MDM - Abdominal Pain Lab Data Attestation: I reviewed the patient's lab results. Result diagrams: 11/12/20 20:28 11/12/20 20:28 Labs: Lab Results 11/12/20 11/12/20 11/12/20 Range/Units 20:28 20:28 20:28 WBC 7.8 (4.5-11.0) X10^3/uL RBC 3.93 L (4.5-5.9) X10^6/uL Hgb 12.4 L (13.5-17.5) g/dL Hct 36.7 L (41-53) % MCV 93.4 (80-100) fL MCH 31.4 (26-34) PG MCHC 33.7 (30-36) % RDW 13.4 (11.6-14.8) % Plt Count 384 (150-400) X10^3/uL Neut % (Auto) 32.8 L (50-75) % Lymph % (Auto) 44.7 H (25-40) % [place] % (Auto) 15.7 H (3-14) % Eos % (Auto) 5.6 H (2-4) % Baso % (Auto) 1.2 (0-2) % Neut # (Auto) 2500 (0888-6575) /uL Lymph # (Auto) 3500 (7470-3604) /uL [place] # (Auto) 1200 H (0-900) /uL Eos # (Auto) 400 (0-450) /uL Baso # (Auto) 100 (0-100) /uL Sodium 140 (137-145) mmol/L Potassium 3.6 (3.4-5.1) mmol/L Chloride 106 (98-107) mmol/L Carbon Dioxide 27 (22-32) mmol/L BUN 24 H (9-20) mg/dL Creatinine 0.77 (0.66-1.25) mg/dL Estimated GFR > 60.0 (>60) mL/min BUN/Creatinine Ratio 31.2 H (6-22) Glucose 125 H (80-110) mg/dL Calcium 9.5 (8.4-10.2) mg/dL Total Bilirubin 0.1 L (0.2-1.3) mg/dL AST 42 (17-59) IU/L ALT 25 (<50) IU/L Alkaline Phosphatase 54 (38-126) U/L Total Protein 6.9 (6.3-8.2) g/dL Albumin 4.1 (3.5-5.0) g/dL Globulin 2.8 (1.7-4.1) g/dL Albumin/Globulin Ratio 1.5 (1.0-2.8) Lipase 89 (23-300) U/L SARS-CoV-2 (PCR) Negative (Negative) Point of care testing: Urine Dip Bedside Urine Glucose Negative Bedside Urine Bilirubin - Negative Bedside Urine Ketone - Negative Urine Specific [place] 1.020 Bedside Urine Occult Blood - Negative Bedside Urine pH 7.5 Bedside Urine Protein - Negative Bedside Urine Urobilinogen - Negative Bedside Urine Nitrite - Negative Bedside Urine Leukocytes - Negative Esterase Imaging Data Abdominal x-ray: Radiologist's Impression: [address] [id number] ReportSigned Patient: Edgar Paris WMR#: [id number]: [id number]:[id number]/Sex: 65 / MDate of Service: 11/12/20Loc: EDAccession Number: [id number] Procedure: XR abdomen min 2V Ordering Provider: Elizabeth Fountain D.O. PROCEDURE: XR ABDOMEN MIN 2V INDICATIONS: abd pain, hernia on right inguinal region TECHNIQUE: 2 views of the abdomen were acquired. COMPARISON: None. FINDINGS: Surgical changes and devices: None. Bowel: No pneumoperitoneum. The bowel gas pattern is nonspecific. Moderate amount of stool noted throughout the colon. Soft tissues: No masses; visualized solid organ contours appear normal in size. No suspicious abdominal calcifications. Bones: No suspicious bony abnormalities. IMPRESSION: 1. Nonspecific bowel gas pattern without definite evidence of obstruction. 2. Moderate fecal loading noted throughout the colon. Dictated by: Caitlyn Miller MD, PhD on 11/12/2020 at 21:15 Approved by: Caitlyn Miller MD, PhD on 11/12/2020 at 21:17 CT scan - abdomen/pelvis: Radiologist's Impression: Partial/early small-bowel obstruction secondary to incarcerated right inguinal hernia. Small left intrarenal calculus. Mild bilateral hydro the left greater than right extrarenal pelvis but no hydroureter and if sign it obstructing calculus. Secondary to mild distention of urinary bladder. No bladder wall thickening. Mildly enlarged prostate. MDM Narrative Medical decision making narrative: This is a 65 year old male with recurrent incarcerated right inguinal hernia, this is patients third episode. Patient was evaluated and unable to reduce myself. Spoke with Dr. Pickard with general surgery was contacted and he is familiar with the patient and repaired his hernia the 2nd time in April of 2020. They do feel that patient would benefit from being at a larger facility and recommend [facility] as they feel patient is has a likely to have a recurrent failure if repaired here at [facility] and recommended we obtain CT imaging. Imaging obtained, pushed to [facility] and patient aware of plan. Awaiting contact from general surgery at [facility]. Contacted several times and spoke with Dr. Ricci with General surgery. He would like to speak with our surgeon here to have some additional details about patient's prior repair but does except for transfer. Also discussed with Dr. Randle from the emergency department. Dr. Pickard updated and given contact info to discuss with Dr. Ricci. Discharge Plan Departure Patient Disposition: [facility] Clinical Impression: Incarcerated right inguinal hernia Prescriptions: No Action cholecalciferol (vitamin D3) 1 tab PO DAILY RF: 0 vitamin E acetate 1 tab PO DAILY RF: 0 coenzyme Q10 1 tab PO DAILY RF: 0 multivitamin with iron 1 tab PO DAILY RF: 0 cyanocobalamin (vitamin B-12) 1 tab PO DAILY RF: 0 Referrals: Clayton Morales, [Primary Care Provider] -
[2020-11-12] MEDS: SODIUM CHLORIDE 0.9% 1,000 ML 1000 ML IV (20:44)
[2020-11-12 20:48] LABS: Add Manual Diff / Slide Review NO; Basophils Absolute Auto 100 /uL (0-100); Basophils Percent Auto 1.2 % (0-2); Eosinophils Absolute Auto 400 /uL (0-450); Eosinophils Percent Auto 5.6 % (2-4); Hematocrit 36.7 % (41-53); Hemoglobin 12.4 g/dL (13.5-17.5); Lymphocytes Absolute Auto 3500 /uL (1100-4500); Lymphocytes Percent Auto 44.7 % (25-40); Mean Corpuscular HGB Conc 33.7 % (30-36); Mean Corpuscular Hemoglobin 31.4 PG (26-34); Mean Corpuscular Volume 93.4 fL (80-100); Monocytes Absolute Auto 1200 /uL (0-900); Monocytes Percent Auto 15.7 % (3-14); Neutrophils Absolute Auto 2500 /uL (1500-7000); Neutrophils Percent Auto 32.8 % (50-75); Platelet Count 384 X10^3/uL (150-400); Red Blood Cell Count 3.93 X10^6/uL (4.5-5.9); Red Cell Distribution Width 13.4 % (11.6-14.8); White Blood Cell Count 7.8 X10^3/uL (4.5-11.0)
[2020-11-12 20:56] LABS: Alanine Aminotransferase 25 IU/L (<50); Albumin 4.1 g/dL (3.5-5.0); Albumin Globulin Ratio 1.5 (1.0-2.8); Alkaline Phosphatase 54 U/L (38-126); Aspartate Aminotransferase 42 IU/L (17-59); BUN Creatinine Ratio 31.2 (6-22); Bilirubin Total 0.1 mg/dL (0.2-1.3); Blood Urea Nitrogen 24 mg/dL (9-20); Calcium 9.5 mg/dL (8.4-10.2); Carbon Dioxide 27 mmol/L (22-32); Chloride 106 mmol/L (98-107); Estimated Glomerular Filt Rate > 60.0 mL/min (>60); Globulin 2.8 g/dL (1.7-4.1); Glucose 125 mg/dL (80-110); HEMOLYSIS 25 (0-50); Lipase 89 U/L (23-300); Potassium 3.6 mmol/L (3.4-5.1); Sodium 140 mmol/L (137-145); Total Protein 6.9 g/dL (6.3-8.2)
[2020-11-12 21:37] LABS: COVID19 - ADMIT (NP swab/PCR) Negative (Negative)
--- NOTE | 2020-11-12 21:39 | DI.CT.S_ITS ---
PROCEDURE: CT ABDOMEN PELVIS W CON INDICATIONS: right inguinal hernia, incarcerated. TECHNIQUE: After the administration of intravenous contrast, 5 mm thick sections acquired from the diaphragm to the symphysis. 5 mm coronal and sagittal reformats were acquired. For radiation dose reduction, the following was used: automated exposure control, adjustment of mA and/or kV according to patient size. COMPARISON: [facility], CT, CT KIDNEY URETER BLADDER (KUB), 09/29/2020, 10:10. [facility], CT, CT ABDOMEN PELVIS W CON, 05/04/2020, 19:05. FINDINGS: Image quality: Excellent. ABDOMEN: Lung bases: Minimal bibasilar atelectasis. No pleural effusion. Heart size is normal. Solid organs: Liver is normal in size and enhancement. Gallbladder is unremarkable. Biliary system is non dilated. Pancreas enhances normally. Spleen is absent besides a few small splenules. No adrenal nodules. Kidneys demonstrate normal size and enhancement. Bilateral extrarenal pelvises. Bilateral extrarenal pelvises. Mild caliectasis bilaterally which is similar to the prior exams dating back to April 2020. UPJ obstruction could have this appearance. Mid left kidney nonobstructing calculus measuring 0.3 cm. Peritoneum and bowel: Stomach is distended. The duodenum and proximal small bowel is not distended. Right inguinal hernia containing small bowel. The bowel is dilated upstream from this site the to the level of the mid left abdomen. Findings consistent with incarcerated right inguinal hernia. There is a small amount of fluid in the right inguinal hernia sac. On the prior CT 09/29/2020 fluid was seen within the right hernia sac but no bowel. The distal ileum is a decompressed with fecalization at the terminal ileum. Scattered stool in the colon. Normal appendix. No ascites or pneumoperitoneum. No pneumatosis intestinalis. Nodes and vessels: No retroperitoneal or mesenteric adenopathy by size criteria. Aorta and inferior vena cava are normal in size. Moderate plaque. Miscellaneous: No significant ventral hernias. PELVIS: Genitourinary: Bladder wall thickness is normal. Miscellaneous: Right inguinal hernia containing small bowel. Fat containing left inguinal hernia. No adenopathy. Bones: No suspicious bony lesions. L2 intraosseous hemangioma. No vertebral body compression fractures. IMPRESSION: Distal small bowel obstruction due to incarcerated right inguinal hernia. No pneumatosis or pneumoperitoneum. Small volume of free fluid in the right hernia sac. This report is concordant with the overnight preliminary interpretation. Dictated by: Andrés Landeros M.D. on 11/13/2020 at 7:57 Approved by: Andrés Landeros M.D. on 11/13/2020 at 8:14
[2020-11-13] VITALS (9 sets, daily range): BP systolic 117–154; BP diastolic 73–90; PULSE 51–71; RESP 14–31; O2SAT 92–97
[2020-11-13] MEDS: SODIUM CHLORIDE 0.9% 1,000 ML 200 ML IV (00:04)
[2020-11-13] MEDS: HYDROMORPHONE 1 MG INJ IV (04:31)
[2020-11-13] MEDS: ONDANSETRON 4 MG/2 ML INJ IV (04:37)
== END 2020-11-13 04:48 | disposition short-term general hospital (02) ==
PROVIDERS: Emergency Provider Emergency Medicine; PCP Family Medicine
DX: K40.30 Unilateral inguinal hernia, with obstruction, without gangrene, not specified as recurrent (principal)
CPT/HCPCS: 36415; 74019; 74177; 80053; 81003; 83690; 85025; 87635; 96361; 96374; 96375; 96376; 99284; J1170; J2405; Q9967

== ENCOUNTER → 2021-03-01 10:15 | Outpatient (CLI) | payer MEDICARE, OTHER, SELFPAY ==
[2020-09-29 10:17] VITALS: BMI 21.7
== END ==
PROVIDERS: PCP Family Medicine; Visit Provider Student in an Organized Health Care Education/Training Program
DX: N34.3 Urethral syndrome, unspecified (principal)
CPT/HCPCS: 87086

== ENCOUNTER → 2021-03-01 11:02 | Outpatient (CLI) | payer MEDICARE, OTHER, SELFPAY ==
[2020-09-29 10:17] VITALS: BMI 21.7
[2021-03-01 11:41] LABS: Add Manual Diff / Slide Review NO; Basophils Absolute Auto 100 /uL (0-100); Basophils Percent Auto 0.3 % (0-2); Eosinophils Absolute Auto 0 /uL (0-450); Eosinophils Percent Auto 0.2 % (2-4); Hematocrit 40.2 % (41-53); Hemoglobin 13.7 g/dL (13.5-17.5); Lymphocytes Absolute Auto 1000 /uL (1100-4500); Lymphocytes Percent Auto 5.1 % (25-40); Mean Corpuscular HGB Conc 34.1 % (30-36); Mean Corpuscular Hemoglobin 31.6 PG (26-34); Mean Corpuscular Volume 92.9 fL (80-100); Monocytes Absolute Auto 2100 /uL (0-900); Monocytes Percent Auto 11.1 % (3-14); Neutrophils Absolute Auto 15900 /uL (1500-7000); Neutrophils Percent Auto 83.3 % (50-75); Platelet Count 410 X10^3/uL (150-400); Red Blood Cell Count 4.33 X10^6/uL (4.5-5.9); Red Cell Distribution Width 14.9 % (11.6-14.8); White Blood Cell Count 19.1 X10^3/uL (4.5-11.0)
[2021-03-01 11:43] LABS: Alanine Aminotransferase 40 IU/L (<50); Albumin 4.4 g/dL (3.5-5.0); Albumin Globulin Ratio 1.3 (1.0-2.8); Alkaline Phosphatase 82 U/L (38-126); Aspartate Aminotransferase 51 IU/L (17-59); BUN Creatinine Ratio 15.1 (6-22); Blood Urea Nitrogen 13 mg/dL (9-20); Calcium 10.1 mg/dL (8.4-10.2); Carbon Dioxide 27 mmol/L (22-32); Chloride 102 mmol/L (98-107); Estimated Glomerular Filt Rate > 60.0 mL/min (>60); Globulin 3.3 g/dL (1.7-4.1); Glucose 119 mg/dL (80-110); HEMOLYSIS < 15 (0-50); Potassium 4.8 mmol/L (3.4-5.1); Sodium 136 mmol/L (137-145); Total Protein 7.7 g/dL (6.3-8.2)
== END ==
PROVIDERS: PCP Family Medicine; Referring Provider Student in an Organized Health Care Education/Training Program; Visit Provider Student in an Organized Health Care Education/Training Program
DX: N34.3 Urethral syndrome, unspecified (principal); T81.9XXA Unspecified complication of procedure, initial encounter; T83.511A Infection and inflammatory reaction due to indwelling urethral catheter, initial encounter
CPT/HCPCS: 36415; 80053; 85025; 87077; 87086; 87186

== ENCOUNTER → 2021-03-03 07:02 | Outpatient (CLI) | payer MEDICARE, OTHER, SELFPAY ==
[2020-09-29 10:17] VITALS: BMI 21.7
[2021-03-03 07:50] LABS: Lactate (Lactic Acid) 0.9 mmol/L (0.7-2.1)
== END ==
PROVIDERS: PCP Family Medicine; Referring Provider Student in an Organized Health Care Education/Training Program; Visit Provider Student in an Organized Health Care Education/Training Program
DX: N39.0 Urinary tract infection, site not specified (principal); T81.9XXA Unspecified complication of procedure, initial encounter; T83.511A Infection and inflammatory reaction due to indwelling urethral catheter, initial encounter
CPT/HCPCS: 36415; 83605; 87040

== ENCOUNTER → 2021-03-11 15:35 | Outpatient (CLI) | payer MEDICARE, OTHER, SELFPAY ==
[2020-09-29 10:17] VITALS: BMI 21.7
[2021-03-11 19:52] LABS: Bacteria Urine None Seen; WBC Urine None Seen (0-5/HPF)
[2021-03-11 20:21] LABS: Appearance Urine UA CLEAR; Bilirubin Urine UA NEGATIVE (NEGATIVE); Color Urine UA YELLOW; Glucose Urine UA NEGATIVE (Negative); Ketones Urine UA NEGATIVE (NEGATIVE); Leukocyte Esterase Urine UA NEGATIVE (NEGATIVE); Nitrite Urine UA NEGATIVE (Negative); Occult Blood Urine UA 2+ (Negative); Protein Urine UA NEGATIVE (Negative); Specific Gravity Urine UA <=1.005 (1.000-1.035); Urobilinogen Urine UA 0.2 E.U./dL (0.2)
[2021-03-11 20:29] LABS: RBC Urine 0-1/HPF (0-5/HPF)
== END ==
PROVIDERS: PCP Family Medicine; Visit Provider Registered Nurse Diabetes Educator
DX: R31.9 Hematuria, unspecified (principal); N39.0 Urinary tract infection, site not specified; T83.511A Infection and inflammatory reaction due to indwelling urethral catheter, initial encounter
CPT/HCPCS: 81001; 87086

== ENCOUNTER → 2021-04-26 08:36 | Outpatient (CLI) | payer MEDICARE, BC, SELFPAY ==
[2020-09-29 10:17] VITALS: BMI 21.7
[2021-04-26 09:08] LABS: Bacteria Urine None Seen; WBC Urine None Seen (0-5/HPF)
--- NOTE | 2021-04-26 09:14 | DI.RAD.S_ITS ---
PROCEDURE: XR HAND RT MIN 3V INDICATIONS: R wrist pain TECHNIQUE: 3 views of the hand(s) acquired. COMPARISON: None. FINDINGS: Bones: No acute fracture. Severe ring finger PIP joint degeneration. Elsewhere, diffuse interphalangeal osteoarthritis. Marginal lucencies at the PIP joints of middle and ring finger. Soft tissues: 6 mm loose body projecting adjacent to the ulnar styloid. Diffuse carpal joint degeneration. Scattered degenerative subchondral sclerosis and spurring. IMPRESSION: Diffuse degenerative changes as above. Loose body projects adjacent to the ulnar styloid Dictated by: Mohan Kasper M.D. on 04/26/2021 at 9:46 Approved by: Mohan Kasper M.D. on 04/26/2021 at 9:50
[2021-04-26 09:51] LABS: Appearance Urine UA CLEAR; Bilirubin Urine UA NEGATIVE (NEGATIVE); Color Urine UA YELLOW; Glucose Urine UA NEGATIVE (Negative); Ketones Urine UA NEGATIVE (NEGATIVE); Leukocyte Esterase Urine UA NEGATIVE (NEGATIVE); Nitrite Urine UA NEGATIVE (Negative); Occult Blood Urine UA TRACE-INTACT (Negative); Protein Urine UA NEGATIVE (Negative); Specific Gravity Urine UA <=1.005 (1.000-1.035); Urobilinogen Urine UA 0.2 E.U./dL (0.2)
[2021-04-26 10:21] LABS: Culture Indicated Urine Cult Not Indicated; RBC Urine 0-1/HPF (0-5/HPF)
== END ==
PROVIDERS: PCP Family Medicine; Referring Provider Family Medicine; Visit Provider Family Medicine
DX: T83.511A Infection and inflammatory reaction due to indwelling urethral catheter, initial encounter (principal); N39.0 Urinary tract infection, site not specified; M19.90 Unspecified osteoarthritis, unspecified site
CPT/HCPCS: 73130; 81001

== ENCOUNTER → 2021-12-16 08:53 | Outpatient (CLI) | payer MEDICARE, BC, SELFPAY ==
[2020-09-29 10:17] VITALS: BMI 21.7
[2021-12-16 09:43] LABS: Add Manual Diff / Slide Review NO; Basophils Absolute Auto 100 /uL (0-100); Basophils Percent Auto 2.1 % (0-2); Eosinophils Absolute Auto 300 /uL (0-450); Hematocrit 37.7 % (41-53); Hemoglobin 12.9 g/dL (13.5-17.5); Lymphocytes Absolute Auto 1700 /uL (1100-4500); Lymphocytes Percent Auto 37.5 % (25-40); Mean Corpuscular HGB Conc 34.1 % (30-36); Mean Corpuscular Hemoglobin 31.8 PG (26-34); Monocytes Absolute Auto 700 /uL (0-900); Monocytes Percent Auto 15.8 % (3-14); Neutrophils Absolute Auto 1800 /uL (1500-7000); Neutrophils Percent Auto 38.6 % (50-75); Platelet Count 396 X10^3/uL (150-400); Red Blood Cell Count 4.06 X10^6/uL (4.5-5.9); Red Cell Distribution Width 13.5 % (11.6-14.8); White Blood Cell Count 4.6 X10^3/uL (4.5-11.0)
[2021-12-16 09:49] LABS: Hemoglobin A1C% w Est Avg Glu 5.5 % (4.0-6.0)
[2021-12-16 10:12] LABS: Alanine Aminotransferase 24 IU/L (<50); Albumin 4.1 g/dL (3.5-5.0); Albumin Globulin Ratio 1.5 (1.0-2.8); Alkaline Phosphatase 55 U/L (38-126); Aspartate Aminotransferase 36 IU/L (17-59); BUN Creatinine Ratio 21.1 (6-22); Bilirubin Total 0.4 mg/dL (0.2-1.3); Blood Urea Nitrogen 16 mg/dL (9-20); Calcium 9.4 mg/dL (8.4-10.2); Carbon Dioxide 29 mmol/L (22-32); Chloride 106 mmol/L (98-107); Cholesterol 228 mg/dL (140-199); Estimated Glomerular Filt Rate > 60 mL/min (>60); Globulin 2.7 g/dL (1.7-4.1); Glucose 97 mg/dL (80-110); HDL Cholesterol 62 mg/dL (40-60); HEMOLYSIS < 15 (0-50); LDL Cholesterol Calculated 154 mg/dL (<100); Potassium 4.7 mmol/L (3.4-5.1); Sodium 141 mmol/L (137-145); Total Protein 6.8 g/dL (6.3-8.2); Triglycerides 58 mg/dL (35-150)
[2021-12-16 10:40] LABS: Prostate Specific Antigen Scrn 1.06 ng/mL (0.1-4.0)
== END ==
PROVIDERS: PCP Family Medicine; Referring Provider Family Medicine; Visit Provider Family Medicine
DX: Z12.5 Encounter for screening for malignant neoplasm of prostate (principal); Z00.00 Encounter for general adult medical examination without abnormal findings
CPT/HCPCS: 36415; 80053; 80061; 83036; 85025; G0103

== ENCOUNTER → 2022-01-24 11:46 | Outpatient (CLI) | payer MEDICARE, BC, SELFPAY ==
[2020-09-29 10:17] VITALS: BMI 21.7
--- NOTE | 2022-01-24 11:49 | DI.RAD.S_ITS ---
PROCEDURE: XR FOOT LT MIN 3V INDICATIONS: left foot pain TECHNIQUE: 3 views of the foot were acquired. COMPARISON: None. FINDINGS: Bones: No fractures or dislocations. No suspicious bony lesions. Moderate 1st MTP joint osteoarthritis. Mild 1st DIP joint osteoarthritis. Mild hallux valgus deformity. Soft tissues: No tibiotalar joint effusion. Achilles tendon appears normal. IMPRESSION: Osteoarthritis as described above. Dictated by: Caitlyn Miller MD, PhD on 01/24/2022 at 14:39 Approved by: Caitlyn Miller MD, PhD on 01/24/2022 at 14:40
== END ==
PROVIDERS: PCP Family Medicine; Referring Provider Family Medicine; Visit Provider Family Medicine
DX: M19.072 Primary osteoarthritis, left ankle and foot (principal); M20.12 Hallux valgus (acquired), left foot; M79.672 Pain in left foot
CPT/HCPCS: 73630

== ENCOUNTER → 2022-03-08 11:10 | Outpatient (CLI) | payer MEDICARE, BC, SELFPAY ==
[2020-09-29 10:17] VITALS: BMI 21.7
--- NOTE | 2022-03-08 11:17 | DI.CT.S_ITS ---
PROCEDURE: CT KIDNEY URETER BLADDER (KUB) INDICATIONS: Evaluate and assess persistent nephrolithiasis TECHNIQUE: Axial sections were acquired from the lung bases to the pubic symphysis. Coronal and sagittal reformats were performed. For radiation dose reduction, the following was used: automated exposure control, adjustment of mA and/or kV according to patient size. COMPARISON: [facility], CT, CT KIDNEY URETER BLADDER (KUB), 09/29/2020, 10:10. FINDINGS: Image quality: Excellent. Lung bases: Lung bases are clear. Heart: No significant findings. URINARY: Right Kidney: No stones or hydronephrosis. Right Ureter: No hydroureter. No ureteral stone. Left Kidney: Persistent 4 mm nonobstructing left renal stone. Tiny punctate 2 mm nonobstructing stone is noted in the inferior pole the left kidney. Previously seen hydronephrosis of the left kidney has resolved. No hydroureter. No ureteral stone. Of note, a few stable tiny punctate densities are noted posterior to the left bladder wall in close vicinity to the left ureterovesicular junction. These are felt not to be within the distal left ureter. Left Ureter: No hydroureter. No ureteral stone. Bladder: Normal wall thickness. No stones. ABDOMEN: Liver: Unremarkable. Gallbladder: Unremarkable Biliary ducts: Unremarkable. Pancreas: Unremarkable. Spleen: Unremarkable. Adrenal Glands: Unremarkable. Stomach and Bowel: Stomach, small bowel loops, and colon are unremarkable. Peritoneum: No abnormal intraperitoneal fluid. No free air. Ventral Wall: There is a fat-containing umbilical hernia without acute inflammation. Abdominal Nodes: No enlarged retroperitoneal or mesenteric lymph nodes. Vessels: Aorta and inferior vena cava are normal in size. Scattered atherosclerotic calcifications of the abdominal aorta and iliac vessels. PELVIS: Pelvic Organs: Unremarkable. Pelvic Nodes: Unremarkable. Miscellaneous: No inguinal hernias are seen. Status post interval hernia repair of previously visualized bilateral fat containing inguinal hernias. Surgical clips are noted in the right inguinal region. Bones: Unremarkable. IMPRESSION: 1. Small left renal stones measuring up to 4 mm. No evidence for hydronephrosis. No hydroureter or ureteral stones seen. 2. Right kidney without evidence for renal stones or hydronephrosis. Right ureter is normal in course and caliber without ureteral stone. 3. Status post interval repair of bilateral fat containing inguinal hernias. No current evidence for inguinal hernias. 4. Tiny fat containing umbilical hernia without acute inflammation. 5. Atherosclerosis. Dictated by: Ambrocio Barney M.D. on 03/08/2022 at 16:41 Approved by: Ambrocio Barney M.D. on 03/08/2022 at 17:39
== END ==
PROVIDERS: PCP Family Medicine; Referring Provider Family Medicine; Visit Provider Family Medicine
DX: N20.0 Calculus of kidney (principal); I70.0 Atherosclerosis of aorta
CPT/HCPCS: 74176

== ENCOUNTER → 2022-03-24 12:43 | Outpatient (CLI) | payer MEDICARE, BC, SELFPAY ==
[2020-09-29 10:17] VITALS: BMI 21.7
--- NOTE | 2022-03-24 12:46 | DI.RAD.S_ITS ---
PROCEDURE: FL WRIST INJECTION MR/CT RT INDICATIONS: Right scapholunate injury COMPARISON: None. TECHNIQUE: After informed consent had been obtained, the wrist was examined fluoroscopically, and a site chosen for injection of the radiocarpal compartment from a dorsal approach. Skin was prepped and draped in a sterile fashion and 1% lidocaine infiltrated from the skin down to the articular surface. A hypodermic needle was then introduced into the articular space and a modest amount of contrast medium was instilled confirming intra-articular needle tip placement. This was followed by approximately 4 mL of a dilute gadolinium solution. Needle was removed and dressing was applied. The patient experienced no complications throughout the procedure and left the fluoroscopic suite in no apparent distress. FINDINGS: A single fluoroscopic spot image demonstrates intra-articular location to injected iodinated contrast. IMPRESSION: Successful fluoroscopic-guided administration of dilute Gadolinium solution for wrist MR arthrogram. Dictated by: Zhang Chance M.D. on 03/24/2022 at 15:46 Approved by: Zhang Chance M.D. on 03/24/2022 at 15:46
--- NOTE | 2022-03-24 12:47 | DI.MRI.S_ITS ---
PROCEDURE: MR WRIST RT W CON INDICATIONS: Right scapholunate injury TECHNIQUE: After the administration of 3-4 mL of dilute intra-articular Gadolinium contrast into the radiocarpal compartment, coronal T1 spin echo with fat saturation and T2 fast spin echo with fat saturation, axial T1 spin echo and T2 fast spin echo with fat saturation, sagittal T1 spin echo with and without fat saturation through the wrist. COMPARISON: None. FINDINGS: Image quality: Excellent. Bones and cartilage: There is widening of scapholunate interval. Dorsal tilt of the lunate with increased scapholunate angle greater than 60 degree suggestive of dorsal intercalated segment instability. Marrow edema involving lunate, capitate, mid to distal triquetrum and proximal scaphoid is seen without discrete fracture line. Osteoarthritic changes also noted throughout wrist joints with joint space narrowing, subchondral sclerosis and cyst formation more prominent involving lunocapitate and lunotriquetral joints. No evidence of avascular necrosis. There are 3 loose bodies over volar and ulnar aspect of ulnar styloid, triquetrum and hamate and measures 5 mm, 6 mm and 4 mm in size respectively. Carpal ligaments: There is rupture of scapholunate ligament with gadolinium extravasation into the mid-carpal compartment. The lunotriquetral ligament is intact. The radioscaphocapitate and radiolunotriquetral ligaments appear intact. The arcuate ligament and short radiolunate ligament also appear normal. The dorsal intercarpal and radiotriquetral ligaments appear intact. On sagittal images, the pisohamate ligament appears intact. Triangular fibrocartilage complex: The triangular fibrocartilage disc, with its styloid and foveal lamina, appears intact. No gadolinium extravasation into the distal radioulnar joint. The adjacent meniscal homolog appears normal. The ulnar collateral ligament appears intact. There is volar subluxation of extensor carpi ulnaris tendon along medial periphery of distal ulnar and ulnar styloid. Tendons and soft tissues: The carpal tunnel structures appear normal, including the median nerve. The ulnar nerve appears normal within Guyon's canal. All six extensor tendon compartments demonstrate normal morphology, without pathologic tendon sheath fluid. No soft tissue ganglion cysts. IMPRESSION: 1. Osteoarthritic changes are noted in wrist joints as above. Contusion involving multiple carpal bones with marrow edema. No acute fracture or dislocation. No evidence of osteonecrosis. At least 3 loose bodies along ulnar aspect of wrist as above. 2. Ruptured scapholunate ligament with widened scapholunate interval, and dorsal tilt of lunate with increased scapholunate angle suggestive of DISI. 3. Slight volar subluxation of extensor carpi ulnaris tendon along medial periphery of ulnar styloid. No gross wrist tendon rupture or tendinosis. 4. Triangular fibrocartilage complex is intact. Dictated by: Zhang Chance M.D. on 03/24/2022 at 15:46 Approved by: Zhang Chance M.D. on 03/24/2022 at 21:03
== END ==
PROVIDERS: PCP Family Medicine; Referring Provider Podiatrist; Visit Provider Podiatrist
DX: S63.392A Traumatic rupture of other ligament of left wrist, initial encounter (principal); S60.211A Contusion of right wrist, initial encounter; M25.331 Other instability, right wrist; M24.031 Loose body in right wrist; X58.XXXA Exposure to other specified factors, initial encounter
CPT/HCPCS: 20605; 73222; 77002

== ENCOUNTER → 2022-05-31 09:57 | Outpatient (CLI) | payer MEDICARE, BC, SELFPAY ==
[2020-09-29 10:17] VITALS: BMI 21.7
[2022-05-31 10:55] LABS: COVID19 -Nasal RAPID Negative (Negative)
== END ==
PROVIDERS: PCP Family Medicine; Referring Provider Orthopaedic Surgery; Visit Provider Orthopaedic Surgery
DX: Z20.822 Contact with and (suspected) exposure to COVID-19 (principal)
CPT/HCPCS: 87635; C9803

== ENCOUNTER 2022-06-02 06:12 | Day surgery (SDC) | payer MEDICARE, BC, SELFPAY ==
[2020-09-29 10:17] VITALS: BMI 21.7
[2022-05-30 14:58] VITALS: BMI 22.9
[2022-06-02] VITALS (9 sets, daily range): BP systolic 120–142; BP diastolic 61–83; PULSE 50–73; RESP 12–22; TEMP 35.6–36.4; O2SAT 95–99; BMI 22.6
[2022-06-02] MEDS: LACTATED RINGERS 1,000 ML 42 ML IV (07:15)
--- NOTE | 2022-06-02 07:24 | PM.HP.1 ---
History of Present Illness History of Present Illness Date Patient Seen: 06/02/22 Time Patient Seen: 07:15 Chief complaint: RIGHT WRIST SLIL RECONSTRUCTION Narrative: 67-year-old gentleman a history of a scapholunate ligament rupture resulting in pain and dysfunction right wrist. Patient History Medical History Atypical nevi Chicken pox Chronic lower back pain Ear pain Headache (~2018) Hyperlipidemia Kidney stones (~2016) Left foot pain Lipoma Nephrolithiasis Osteoarthritis Routine history and physical examination of adult Shoulder pain (~1989) Skin lesion Wears glasses Weight loss Well adult exam Surgical History Anesthesia H/O right wrist surgery (~2006) History of hand surgery (~2004) History of hernia surgery History of knee surgery (~2000) History of lithotripsy History of shoulder surgery Ruptured spleen (~1971) Family & Social History Family History Father Lung cancer Mother Stroke Brother Cancer Grandmother Stroke Social History: household members spouse Tobacco & Substance use: Smoking Status Never smoker alcohol intake current alcohol intake frequency holiday/special occasion Substance Use Type does not use Meds Home Medications and Allergies Home Medications Medication Instructions Recorded Confirmed Type cholecalciferol (vitamin D3) 1 tab PO DAILY 09/24/19 06/02/22 History coenzyme Q10 [CoQ-10] 1 tab PO DAILY 09/24/19 06/02/22 History cyanocobalamin (vitamin B-12) 1 tab PO DAILY 09/24/19 06/02/22 History multivitamin with iron 1 tab PO DAILY 09/24/19 06/02/22 History vitamin E acetate 1 tab PO DAILY 09/24/19 06/02/22 History Allergies Allergy/AdvReac Type Severity Reaction Status Date / Time No Known Drug Allergies Allergy Verified 06/02/22 07:06 Exam Vital Signs (past 8 hours): - 06/02/22 07:09 Temperature 97.6 F Pulse Rate 50 L Respiratory Rate 16 Blood Pressure 120/75 Pulse Oximetry 99 Oxygen Delivery Method Room Air Oxygen Delivery Method Room Air Narrative Exam Narrative: Some swelling to the dorsal aspect of the right wrist. Full range of motion of the fingers but decreased range of motion to the radial carpal joint only about 50? of flexion extension. Normal supination and pronation. Pain with stressing of the scapholunate interval. Ulnar, median, and radial nerve intact both motor and sensory function. Assessment & Plan Assessment & Plan narrative: Patient with a right scapholunate ligament rupture. I went over patient's diagnosis as well as treatment options. We discussed operative versus non operative treatment and the risks and limitations associated with both. At this point, patient is interested to proceed with surgical treatment. All of his questions and concerns were answered to his full satisfaction. The risk, benefits, alternatives, possible complications, operative course, and postop outcomes were discussed. Complications including but not limiting to bleeding, infection, fracture, nerve injury, continued pain postoperatively or instability postoperatively were discussed in detail. Medical complications including but not limited to deep venous thrombosis event, anesthesia complications with excessive bleeding, vascular events or cardiac events and other possible complications were discussed in detail. Need for postoperative rehabilitation and anticipated hospital stay and clinical course were discussed in detail. Patient acknowledges understanding and elects to proceed with surgery. Time Spent With Patient Critical Care time: I spent a total of [] minutes of critical care time on this patient's care today; this time is exclusive of procedural time.
--- NOTE | 2022-06-02 07:27 | PM.PREOP ---
Pre-operative Note Interval Note History & Physical reviewed/Exam performed by Physician: Yes Changes to H&P: No
[2022-06-02] MEDS: CEFAZOLIN 2 GM/100 ML PREMIX 100 ML IV (07:50)
--- NOTE | 2022-06-02 07:57 | SUR.OPER ---
Supine on padded OR bed, head on pillow, LEFT ARM secured on padded arm board at <90 degrees abduction, legs uncrossed, safety belt at thigh, tape over blanket over lower legs.RIGHT ARM TO HAND TABLE
[2022-06-02] MEDS: BUPIVACAINE 0.5% (PF) 30 ML, EPINEPHrine 0.15 MG INJ (08:35)
--- NOTE | 2022-06-02 09:14 | P.OP_ITS ---
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 DISI deformity. Large bony loose body in the dorsal aspect of the wrist dorsal to the carpus. Closure Type: primary Applied: implant(s) (Three Arthrex anchors 2 K-wires) Estimated Blood Loss (mL): 5 Tourniquet time (min): 67 Procedure in detail: On date of service, patient was met in the holding area where his operative site was signed and witnessed by the OR staff. The surgery is once again discussed with the patient in remaining questions or concerns he had were answered fully. Patient was taken back to the operating theater and placed on the operating table in a supine position. Great care was taken to ensure that all bony prominences were appropriately padded. A well-padded tourniquet was placed up along the upper extremity. Time-out was performed verifying patient's name, procedure, and operative site. The limb was prepped and draped in the normal sterile fashion. An Esmarch was used to exsanguinate the limb the tourniquet was turned up to 250 mm of mercury. Longitudinal incision was made. The incision was ulnar to the Corey's tubercle. It was centered over the radiocarpal joint. Fifteen blade was used to incise through skin and fascial tissue. Sharp dissection was continued with a 15 blade until the extensor mechanism was identified. Branches of the superficial radial nerve were identified and protected as well as branches coming off ulnarly. Once we had the extensor mechanism identified and was split allowing a release of the EPL tendon. This was also done ulnarly opening up 4th extensor compartment and then done radially opening up the 2nd extensor compartment. This allowed us to retract the extensor tendons. We next took a small strip of tendon tissue from the ECR be which was then whip stitched and then set aside to be used later. Next, the radiocarpal joint was opened preserving the carpal ligaments. This gave us good visualization of the scapholunate interval. There was a complete rupture to the scapholunate ligament. But no sign of any radiocarpal arthritic process. K-wire was placed in to the scaphoid and 1 into the lunate and the scapholunate interval was reduced. There was quite a bit of flexion of the scaphoid which was reduced as well as extension of the lunate. These 2 K-wires were then held together to close down any diastasis. Another K-wire was placed between the scaphoid and the capitate to keep it from falling back into flexion. Next, 3 guidewires were placed 1 in the lunate and 2 in the scaphoid 1 by the sc apholunate interval and then 1 very distally. C-arm used to verify reduction of the scapholunate interval as well as guidewire positioning. Once we were satisfied with the positioning cannulated drill was used to drill over the 3 guidewires. The bony hole tunnels were then copiously irrigated removing any remaining tissue. We then turned our attention back to our tendon graft. This plus suture tape was tenodesed into the 1st hole in the scaphoid. Then under tension this was then placed into the 2nd hole into the lunate going across the scapholunate interval the graft providing a solid repair of the scapholunate interval. Next, the tendon and suture material were then brought up to the distal hole into the scaphoid and retain noticed there to once again help keep the scaphoid from falling into flexion. C-arm was brought in to verify maintenance of reduction. The 2 reducing K-wires were removed and there was no gapping at the scapholunate interval once those K-wires were removed. We were able to flex and extend the wrist with no abnormal motion of the scapholunate interval been no sign of any diastasis. Good signs of a solid repair of the scapholunate interval. The wound was then copiously irrigated. The capsule was closed and repaired using 3-0 FiberWire. The extensor mechanism was closed with Vicryl recreating the 4th extensor compartment as well as the 3rd and 2nd extensor compartments. The rest of the wound was closed in layered fashion. Patient's hand and arm was cleaned dried and dressed. Patient was placed into a splint and taken to the PACU in stable condition. Complications: none Post-operative Condition: stable Disposition: PACU Plan for aftercare: Patient follow our postoperative protocol for a scapholunate ligament reconstruction. Patient will be immobilized for 6 weeks.
[2022-06-02] MEDS: METOCLOPRAMIDE 10 MG/2 ML INJ IV (09:37)
[2022-06-02] MEDS: KETOROLAC 30 MG/ML VIAL IV (09:38)
[2022-06-02] MEDS: LACTATED RINGERS 1,000 ML 120 ML IV (09:59)
== END 2022-06-02 10:31 | disposition home or self-care (01) ==
PROVIDERS: PCP Family Medicine; Referring Provider Family Medicine; Visit Provider Orthopaedic Surgery
PROC: (CPT 25320; principal; 2022-06-02 07:45)
DX: M25.331 Other instability, right wrist (principal); M18.11 Unilateral primary osteoarthritis of first carpometacarpal joint, right hand; M24.031 Loose body in right wrist
CPT/HCPCS: 25320; C1713; J0171; J0690; J1100; J1885; J2250; J2405; J2704; J2765; J3010

== ENCOUNTER 2022-06-05 02:44 | Emergency (ER) | payer MEDICARE, BC, SELFPAY ==
[2020-09-29 10:17] VITALS: BMI 21.7
--- NOTE | 2022-06-05 02:55 | ED.GENADULT ---
HPI - General Adult General Stated complaint: surgery on wrist now has pain and swelling Time Seen by Provider: 06/05/22 02:47 Related Data Home Medications Medication Instructions Recorded Confirmed cholecalciferol (vitamin D3) 1 tab PO DAILY 09/24/19 06/02/22 coenzyme Q10 [CoQ-10] 1 tab PO DAILY 09/24/19 06/02/22 cyanocobalamin (vitamin B-12) 1 tab PO DAILY 09/24/19 06/02/22 multivitamin with iron 1 tab PO DAILY 09/24/19 06/02/22 vitamin E acetate 1 tab PO DAILY 09/24/19 06/02/22 Previous Rx's Medication Instructions Recorded hydroxyzine pamoate 25 mg capsule 25 mg PO TID-QID PRN spasms #60 06/02/22 (Vistaril) caps oxycodone-acetaminophen 5 mg-325 2 tab PO Q4-6H PRN pain #60 tabs 06/02/22 mg tablet (Percocet) Allergies Allergy/AdvReac Type Severity Reaction Status Date / Time No Known Drug Allergies Allergy Verified 06/02/22 07:06 Patient History Medical History Atypical nevi Chicken pox Chronic lower back pain Ear pain Headache (~2018) Hyperlipidemia Kidney stones (~2016) Left foot pain Lipoma Nephrolithiasis Osteoarthritis Routine history and physical examination of adult Shoulder pain (~1989) Skin lesion Wears glasses Weight loss Well adult exam Surgical History Anesthesia H/O right wrist surgery (~2006) History of hand surgery (~2004) History of hernia surgery History of knee surgery (~2000) History of lithotripsy History of shoulder surgery Ruptured spleen (~1971) Family History Father Lung cancer Mother Stroke Brother Cancer Grandmother Stroke Social History household members: spouse Smoking Status: Never smoker alcohol intake: current substance use type: does not use Smoking Status: Never smoker alcohol intake frequency: holidays/special occasions only Substance Use Type: does not use Discharge Plan Departure Prescriptions: No Action cholecalciferol (vitamin D3) 1 tab PO DAILY vitamin E acetate 1 tab PO DAILY coenzyme Q10 1 tab PO DAILY multivitamin with iron 1 tab PO DAILY cyanocobalamin (vitamin B-12) 1 tab PO DAILY oxycodone-acetaminophen [Percocet] 5-325 mg tablet 2 tab PO Q4-6H PRN (Reason: pain) Qty: 60 0RF hydroxyzine pamoate [Vistaril] 25 mg capsule 25 mg PO TID-QID PRN (Reason: spasms) Qty: 60 0RF Referrals: Clayton Morales DO [Primary Care Provider] -
[2022-06-05 02:56] VITALS: BP 141/75; PULSE 67; RESP 18; TEMP 36; O2SAT 99; BMI 22.6
--- NOTE | 2022-06-05 03:00 | ED.GENADULT ---
HPI - General Adult General Chief complaint: Extremity Problem,Nontraumatic Stated complaint: surgery on wrist now has pain and swelling Time Seen by Provider: 06/05/22 02:47 Source: patient and family Mode of arrival: Ambulatory Limitations: no limitations History of Present Illness HPI narrative: 67-year-old male who 3 days ago had an orthopedic procedure done on his right wrist. Discharged home the same day. His in a splint and an Raghu bandage. States that since the surgery he is had numbness in his fingers but now they become cold and painful. Related Data Home Medications Medication Instructions Recorded Confirmed cholecalciferol (vitamin D3) 1 tab PO DAILY 09/24/19 06/02/22 coenzyme Q10 [CoQ-10] 1 tab PO DAILY 09/24/19 06/02/22 cyanocobalamin (vitamin B-12) 1 tab PO DAILY 09/24/19 06/02/22 multivitamin with iron 1 tab PO DAILY 09/24/19 06/02/22 vitamin E acetate 1 tab PO DAILY 09/24/19 06/02/22 Previous Rx's Medication Instructions Recorded hydroxyzine pamoate 25 mg capsule 25 mg PO TID-QID PRN spasms #60 06/02/22 (Vistaril) caps oxycodone-acetaminophen 5 mg-325 2 tab PO Q4-6H PRN pain #60 tabs 06/02/22 mg tablet (Percocet) hydrocodone 5 mg-acetaminophen 325 1 tab PO Q4-6H PRN pain #20 tabs 06/05/22 mg tablet Allergies Allergy/AdvReac Type Severity Reaction Status Date / Time No Known Drug Allergies Allergy Verified 06/05/22 02:56 Review of Systems Musculoskeletal Musculoskeletal: Reports system reviewed and no additional complaints, except as documented Integumentary/Breasts Skin/Breast: Reports system reviewed and no additional complaints, except as documented Neurologic Neurologic: Reports system reviewed and no additional complaints, except as documented Patient History Medical History Atypical nevi Chicken pox Chronic lower back pain Ear pain Headache (~2018) Hyperlipidemia Kidney stones (~2016) Left foot pain Lipoma Nephrolithiasis Osteoarthritis Routine history and physical examination of adult Shoulder pain (~1989) Skin lesion Wears glasses Weight loss Well adult exam Surgical History Anesthesia H/O right wrist surgery (~2006) History of hand surgery (~2004) History of hernia surgery History of knee surgery (~2000) History of lithotripsy History of shoulder surgery Ruptured spleen (~1971) Family History Father Lung cancer Mother Stroke Brother Cancer Grandmother Stroke Social History household members: spouse Smoking Status: Never smoker alcohol intake: current substance use type: does not use Smoking Status: Never smoker alcohol intake frequency: holidays/special occasions only Substance Use Type: does not use Exam Initial Vital Signs Initial Vital Signs: Vital Signs Temperature 96.8 F L 06/05/22 02:56 Pulse Rate 67 06/05/22 02:56 Respiratory Rate 18 06/05/22 02:56 Blood Pressure 141/75 H 06/05/22 02:56 Pulse Oximetry 99 06/05/22 02:56 Oxygen Delivery Method 06/05/22 02:56 Const General: cooperative and comfortable Skin Other: No redness noted to the fingers of the right hand Neuro Other: Decreased sensation to all 4 fingers of the right hand. Extrem Other: Swelling to the fingers of the right hand there also cool to the touch Course Orders Ordered: Discontinued Medications Hydrocodone Bitart/Acetaminophen (Hydrocodone/Acet 5/325 Tablet) 1 tab PO NOW ONE Stop: 06/05/22 03:11 Last Admin: 06/05/22 03:27 Dose: 1 tab Documented By: MLM Hydrocodone Bitart/Acetaminophen (Hydrocodone/Acet 5/325 Prepack) 1 bottle MISC SEEINSTR ONE Stop: 06/05/22 03:59 Vital Signs Vital signs: Vital Signs - 8 hr 06/05/22 02:56 Temperature 96.8 F L Pulse Rate 67 Respiratory Rate 18 Blood Pressure 141/75 H Pulse Oximetry 99 Oxygen Delivery Method Room Air Medical Decision Making MDM Narrative Medical decision making narrative: The Raghu bandage and the underlying cast padding were removed. After a period of time patient states that he felt much better. He was still having quite a bit of discomfort but the other symptoms had improved. The perfusion in his fingers improve. They were now warm. The arm was rewrapped this time more loose. He states that he has a prescription for oxycodone however this medication has never worked for him in the past. He states hydrocodone works better for him. Was sent home with a new prescription for hydrocodone and he will take this rather the oxycodone. He will contact the orthopedic doctor on Monday for follow-up. Discharge Plan Departure Patient Disposition: Home Clinical Impression: Post-operative pain Activity Restrictions/Additional Instructions: I recommend that you follow all of the postoperative instructions given to you by the orthopedic surgeon. Contact the orthopedic surgeon's office on Monday for a follow-up. Return to the emergency department for any new or worsening symptoms. Prescriptions: New hydrocodone-acetaminophen 5-325 mg tablet 1 tab PO Q4-6H PRN (Reason: pain) Qty: 20 0RF No Action cholecalciferol (vitamin D3) 1 tab PO DAILY vitamin E acetate 1 tab PO DAILY coenzyme Q10 1 tab PO DAILY multivitamin with iron 1 tab PO DAILY cyanocobalamin (vitamin B-12) 1 tab PO DAILY oxycodone-acetaminophen [Percocet] 5-325 mg tablet 2 tab PO Q4-6H PRN (Reason: pain) Qty: 60 0RF hydroxyzine pamoate [Vistaril] 25 mg capsule 25 mg PO TID-QID PRN (Reason: spasms) Qty: 60 0RF Referrals: Clayton Morales, [Primary Care Provider] -
[2022-06-05] MEDS: HYDROCODONE/ACET 5/325 TABLET 1 TAB PO (03:27)
[2022-06-05] MEDS: HYDROCODONE/ACET 5/325 PREPACK 1 BOTTLE MISC (04:07)
--- NOTE | 2022-06-05 04:14 | PC.NURSE ---
Immediately on arrival patients right hand was cold swollen numb and pt had severe pain to wrist. Bulky dressing was immediately loosened, with Dr Weiner at bedside. Pt left with hand elevated above heart and fingers warmed and swelling and numbness decreased.
== END 2022-06-05 04:21 | disposition home or self-care (01) ==
PROVIDERS: Emergency Provider Emergency Medicine; PCP Family Medicine
DX: G89.18 Other acute postprocedural pain (principal)
CPT/HCPCS: 99283

== ENCOUNTER → 2023-01-20 16:49 | Outpatient (CLI) | payer MEDICARE, BC, SELFPAY ==
[2020-09-29 10:17] VITALS: BMI 21.7
--- NOTE | 2023-01-20 16:50 | DI.RAD.S_ITS ---
PROCEDURE: XR KNEE LT 3V INDICATIONS: Left knee pain TECHNIQUE: 3 views of the knee were acquired. COMPARISON: None. FINDINGS: Bones: No fractures or dislocations. No suspicious bony lesions. Moderate medial and lateral compartmental joint space narrowing Soft tissues: Small joint effusion IMPRESSION: Moderate joint space narrowing with small joint effusion Approved by: Delta Bonilla M.D. on 01/20/2023 at 17:29
== END ==
PROVIDERS: PCP Family Medicine; Referring Provider Family Medicine; Visit Provider Family Medicine
DX: M25.562 Pain in left knee (principal); M25.462 Effusion, left knee
CPT/HCPCS: 73562

== ENCOUNTER → 2023-01-23 07:04 | Outpatient (CLI) | payer MEDICARE, BC, SELFPAY ==
[2020-09-29 10:17] VITALS: BMI 21.7
[2023-01-23 07:53] LABS: Add Manual Diff / Slide Review NO; Basophils Absolute Auto 100 /uL (0-100); Basophils Percent Auto 1.2 % (0-2); Eosinophils Absolute Auto 300 /uL (0-450); Hematocrit 35.6 % (41-53); Hemoglobin 12.2 g/dL (13.5-17.5); Lymphocytes Absolute Auto 2100 /uL (1100-4500); Lymphocytes Percent Auto 38.9 % (25-40); Mean Corpuscular HGB Conc 34.3 % (30-36); Mean Corpuscular Hemoglobin 32.6 PG (26-34); Mean Corpuscular Volume 95.2 fL (80-100); Monocytes Absolute Auto 800 /uL (0-900); Monocytes Percent Auto 15.1 % (3-14); Neutrophils Absolute Auto 2100 /uL (1500-7000); Neutrophils Percent Auto 39.8 % (50-75); Platelet Count 336 X10^3/uL (150-400); Red Blood Cell Count 3.74 X10^6/uL (4.5-5.9); Red Cell Distribution Width 14.2 % (11.6-14.8); White Blood Cell Count 5.3 X10^3/uL (4.5-11.0)
[2023-01-23 08:43] LABS: Alanine Aminotransferase 22 IU/L (<50); Albumin 3.6 g/dL (3.5-5.0); Albumin Globulin Ratio 1.3 (1.0-2.8); Alkaline Phosphatase 58 U/L (38-126); Aspartate Aminotransferase 30 IU/L (17-59); BUN Creatinine Ratio 16.3 (6-22); Bilirubin Total 0.5 mg/dL (0.2-1.3); Blood Urea Nitrogen 13 mg/dL (9-20); Calcium 9.3 mg/dL (8.4-10.2); Carbon Dioxide 29 mmol/L (22-32); Chloride 103 mmol/L (98-107); Cholesterol 214 mg/dL (140-199); Estimated Glomerular Filt Rate > 60 mL/min (>60); Globulin 2.7 g/dL (1.7-4.1); Glucose 93 mg/dL (80-110); HDL Cholesterol 58 mg/dL (40-60); LDL Cholesterol Calculated 141 mg/dL (<100); Potassium 4.4 mmol/L (3.4-5.1); Sodium 138 mmol/L (137-145); Total Protein 6.3 g/dL (6.3-8.2); Triglycerides 74 mg/dL (35-150)
[2023-01-23 08:45] LABS: HEMOLYSIS < 15 (0-50)
[2023-01-23 10:11] LABS: Prostate Specific Antigen Scrn 0.696 ng/mL (0.1-4.0)
== END ==
PROVIDERS: PCP Family Medicine; Referring Provider Family Medicine; Visit Provider Family Medicine
DX: Z00.00 Encounter for general adult medical examination without abnormal findings (principal); E78.5 Hyperlipidemia, unspecified; Z12.5 Encounter for screening for malignant neoplasm of prostate; D22.9 Melanocytic nevi, unspecified; N20.0 Calculus of kidney
CPT/HCPCS: 36415; 80053; 80061; 85025; G0103

== ENCOUNTER → 2023-06-15 16:25 | Outpatient (CLI) | payer MEDICARE, BC, SELFPAY ==
[2020-09-29 10:17] VITALS: BMI 21.7
--- NOTE | 2023-06-15 16:28 | DI.RAD.S_ITS ---
PROCEDURE: XR HIP W PEL IF DONE MEGHAN MIN 4V INDICATIONS: bilateral hip pain TECHNIQUE: AP pelvis with lateral view(s) of the bilateral hip(s). COMPARISON: None. FINDINGS: Bones: No fractures or dislocations. Pelvic ring appears intact. No suspicious bony lesions. There is severe left hip degenerative arthritis with osteophytes and severe superior lateral joint space loss. There is [id number] degenerative arthritis of the right hip. The shape of the femoral heads and necks suggests bilateral CAM type impingement. Soft tissues: The visualized bowel gas pattern is normal. No suspicious soft tissue calcifications. Pelvic surgical clips. IMPRESSION: Bilateral CAM type impingement. Severe left hip degenerative change and mild to moderate right hip degenerative change. Dictated by: Norberto Schafer M.D. on 06/15/2023 at 18:23 Approved by: Norberto Schafer M.D. on 06/15/2023 at 18:24
== END ==
PROVIDERS: PCP Family Medicine; Referring Provider Family Medicine; Visit Provider Family Medicine
DX: M16.0 Bilateral primary osteoarthritis of hip (principal); M25.551 Pain in right hip; M25.552 Pain in left hip; M25.852 Other specified joint disorders, left hip; M25.851 Other specified joint disorders, right hip
CPT/HCPCS: 73522

== ENCOUNTER → 2023-08-21 08:18 | Outpatient (CLI) | payer MEDICARE, BC, SELFPAY ==
[2020-09-29 10:17] VITALS: BMI 21.7
[2023-08-21 09:38] LABS: Add Manual Diff / Slide Review NO; Basophils Absolute Auto 100 /uL (0-100); Basophils Percent Auto 1.2 % (0-2); Eosinophils Absolute Auto 200 /uL (0-450); Eosinophils Percent Auto 3.8 % (2-4); Hematocrit 39.1 % (41-53); Hemoglobin 13.4 g/dL (13.5-17.5); Lymphocytes Absolute Auto 1900 /uL (1100-4500); Lymphocytes Percent Auto 38.8 % (25-40); Mean Corpuscular HGB Conc 34.1 % (30-36); Mean Corpuscular Hemoglobin 32.6 PG (26-34); Mean Corpuscular Volume 95.4 fL (80-100); Monocytes Absolute Auto 800 /uL (0-900); Monocytes Percent Auto 16.3 % (3-14); Neutrophils Absolute Auto 2000 /uL (1500-7000); Neutrophils Percent Auto 39.9 % (50-75); Platelet Count 375 X10^3/uL (150-400); Red Cell Distribution Width 13.8 % (11.6-14.8); White Blood Cell Count 4.9 X10^3/uL (4.5-11.0)
[2023-08-21 09:43] LABS: HEMOLYSIS < 15 (0-50)
[2023-08-21 09:46] LABS: Hemoglobin A1C% w Est Avg Glu 5.3 % (4.0-6.0)
[2023-08-21 09:48] LABS: Albumin 4.1 g/dL (3.5-5.0); BUN Creatinine Ratio 27.4 (6-22); Blood Urea Nitrogen 20 mg/dL (9-20); Calcium 9.8 mg/dL (8.4-10.2); Carbon Dioxide 28 mmol/L (22-32); Chloride 102 mmol/L (98-107); Estimated Glomerular Filt Rate > 60 mL/min (>60); Glucose 90 mg/dL (80-110); Potassium 4.2 mmol/L (3.4-5.1); Sodium 137 mmol/L (137-145)
[2023-08-22 18:42] LABS: Vitamin D 25 Hydroxy (D3) 68.4 ng/mL (30.0-100.0)
== END ==
PROVIDERS: PCP Family Medicine; Referring Provider Orthopaedic Surgery Adult Reconstructive Orthopaedic Surgery; Visit Provider Orthopaedic Surgery Adult Reconstructive Orthopaedic Surgery
DX: Z01.818 Encounter for other preprocedural examination (principal); R73.9 Hyperglycemia, unspecified; E55.9 Vitamin D deficiency, unspecified; R77.0 Abnormality of albumin; Z01.812 Encounter for preprocedural laboratory examination
CPT/HCPCS: 36415; 80048; 82040; 82306; 83036; 84134; 85025; 93005; 93010

== ENCOUNTER 2023-09-27 08:50 | Day surgery (SDC) | payer MEDICARE, BC, SELFPAY ==
[2020-09-29 10:17] VITALS: BMI 21.7
[2023-09-19 13:42] VITALS: BMI 23.0
[2023-09-27] VITALS (15 sets, daily range): BP systolic 101–127; BP diastolic 56–74; PULSE 57–75; RESP 16–18; TEMP 30.1–36.6; O2SAT 92–100; BMI 23.3
--- NOTE | 2023-09-27 | DI.RAD.S_ITS ---
PROCEDURE: XR HIP W PEL IF DONE LT 2V INDICATIONS: ANTERIOR LT HIP TECHNIQUE: 5 intra procedural images were provided. Fluoroscopy time: 20 seconds [facility] MEGHAN 3[facility] 06/15/2023, 16:32. FINDINGS/IMPRESSION: See surgical note Dictated by: Gilmar Samano M.D. on 09/27/2023 at 13:30 Approved by: Gilmar Samano M.D. on 09/27/2023 at 13:32
--- NOTE | 2023-09-27 06:00 | DI.RAD.S_ITS ---
PROCEDURE: XR HIP W PEL IF DONE LT 2V INDICATIONS: CARMEN TECHNIQUE: AP pelvis and lateral view of the hip acquired. COMPARISON: [facility], [facility], XR HIP W PEL IF DONE LT 2V, 09/27/2023, 11:46. FINDINGS: Bones: Patient is status post left hip arthroplasty, with hardware components in expected positions. The hip joint appears congruent. The visualized bony structures appear intact. Soft tissues: Overlying postoperative changes are noted. No suspicious soft tissue densities. IMPRESSION: Expected post-operative appearance of a hip arthroplasty. Dictated by: Blessing Kimball M.D. on 09/27/2023 at 13:43 Approved by: Blessing Kimball M.D. on 09/27/2023 at 13:43
[2023-09-27] MEDS: LACTATED RINGERS 1,000 ML 42 ML IV (09:25)
[2023-09-27] MEDS: ACETAMINOPHEN 325 MG TABLET 975 MG PO (09:25)
[2023-09-27] MEDS: MELOXICAM 7.5 MG TABLET PO (09:25)
--- NOTE | 2023-09-27 10:40 | PM.PREOP ---
Pre-operative Note Interval Note History & Physical reviewed/Exam performed by Physician: Yes Changes to H&P: No
[2023-09-27] MEDS: CEFAZOLIN 2 GM/100 ML PREMIX 100 ML IV ×2 (11:22→18:30)
--- NOTE | 2023-09-27 11:49 | SUR.OPER ---
Supine on padded [place] table with bilateral legs secured in padded positioning boots and suspended in positioning spars, operative leg in traction per surgeon. Head on one pillow. Arms secured on padded armboards <90 degrees abduction. Padded perineal post in place per surgeon.
[2023-09-27] MEDS: ROPIVACAINE/EPI/CLONIDINE/KET 50 ML SYRINGE INJ (12:00)
[2023-09-27] MEDS: TRANEXAMIC ACID 1,000 MG VIAL 1000 MG INJ ×2 (12:02→12:42)
[2023-09-27] MEDS: OXYCODONE IR 5 MG TABLET PO (13:40)
--- NOTE | 2023-09-27 13:48 | P.OP_ITS ---
Operative Date/Time/Diagnoses Date of procedure: 09/27/23 Pre-op diagnosis: Left hip arthritis Post-op diagnosis: same Procedure & Clinicians Procedure: Left total hip arthroplasty (87507) Same procedure as scheduled: Yes Surgeon: Delta Llamas Shochet: Ashutosh Christianson Anesthesia Type: General, Spinal and Local Operative Notes Estimated Blood Loss (mL): 500 Procedure in detail: Implants: Depuy Total Hip Arthroplasty: * Depuy Leopold Gription size 56 cup? * Depuy Actis femoral stem size 6 high offset? * 36 mm +5 ceramic femoral head? Procedure Summary: Preoperative templating indicated that the patient's operative leg was actually 6 mm long. During initial trialing he was noted to be slightly short with a +1.5 head although he had good stability with the +1.5 head. I therefore implanted a +5 head. His stability remained appropriate and final images indicated that he was slightly long on the operative side, as was his preoperative condition. Procedure in Detail: This patient was seen preoperatively and evaluated for hip pain which was refractory to numerous nonoperative treatment modalities. Their hip pain correlated with radiographic changes demonstrating significant degeneration in the hip joint. The risks and benefits of continued nonoperative management versus operative management were discussed at length and all of the patient?s questions were answered. Additional educational materials providing further details beyond our discussion in clinic were provided via a publicly available patient education video which included the incidence of medical complications associated with total hip arthroplasty, reasons for revision following total hip arthroplasty, and patient satisfaction rates following total hip arthroplasty. That video can be accessed at [email or web address] . With this understanding of the risks inherent to the procedure, the patient elected to move forward with operative management. Following preoperative optimization, the patient was scheduled for surgery. The patient was met in the preoperative holding area the day of the procedure and all questions were answered. The patient?s nares were swabbed with betadine in order to decolonize them from MRSA. Informed consent was signed and the operative limb was marked with indelible ink.? The patient was brought back to the operating room where anesthesia was induced. The patient was transferred to the Mcroberts table and all bony prominences were padded. The operative site was prepped and draped in the usual sterile fashion. Prior to incision, tranexamic acid and cefazolin were administered. Operative templating images were displayed demonstrating the anticipated implant sizes and correct operative extremity. A timeout procedure was performed verifying the patient?s identity, medical comorbidities, allergies, relevant medications, anesthesia type and the surgical plan. All present were in agreement. The assistance of a physician service assistant was required for positioning, room setup, soft tissue retraction and wound closure. Without this assistance, the procedure would have been significantly more challenging and time consuming.?? A direct anterior approach to the hip was utilized. This was performed with a longitudinal incision through a Heuter interval. The incision was planned 2 cm distal and 2 cm lateral to the ASIS extending towards the lateral patella, in line with the muscle body of the TFL. Following incision, the subcutaneous tissue was dissected while taking care to avoid injury to the lateral femoral cutaneous nerve. The fascia overlying the TFL was identified by dissecting off the overlying fat and identifying perforating vessels to the TFL. The TFL fascia was incised and dissected away from the medial border of the TFL. A cobra retractor was placed over the superior femoral neck between the abductors and the hip capsule and used to reflect the TFL laterally. A [place] self-retainer was then placed in the distal aspect of the wound between the TFL and the rectus femoris. This was tensioned to open up the direct anterior interval and the lateral circumflex vessels were identified and coagulated using electrocautery. The floor of the TFL fascia was incised, exposing the pericapsular fat overlying the hip capsule. A second cobra retractor was placed on the inferior femoral neck. A double-bent soft tissue retractor was placed on the anterior wall of the acetabulum and used to tension the reflected head of rectus femoris, which was then released in order to limit soft tissue tension. A capsulotomy was made in the midline of the anterior hip capsule in line with the femoral neck ending at the vastus tubercle. The double-bent retractor was removed in order to limit the amount of time that a soft tissue retractor remained on the anterior wall and protect the femoral nerve. Tag stitches were placed in the superior and inferior leaflets of the hip capsule. An Jeanmarie soft tissue retractor was introduced over the tag stitches and tensioned in the interval between the rectus femoris and the TFL in order to retract and protect those muscles. The cobra retractors were replaced intracapsularly, with one over the superior neck in the pocket created by the base of the greater trochanter and the other on the femoral head. The capsulotomy was extended laterally to the base of the greater trochanter and medially to the lesser trochanter. This required externally rotating the hip. Once the lesser trochanter had been identified, a neck cut was planned according to measurements from preoperative templating. A ruler was cut at the length measured between the superior aspect of the lesser trochanter and the collar of the prosthesis. This line was extended towards the inferior aspect of the lateral cobra retractor to plan a cut which would leave minimal residual femoral neck laterally. The neck was cut at 60 degrees of external rotation along that line. A second cut was performed to remove a large napkin ring and facilitate head extraction. The napkin ring cut and femoral head were removed.?? A broad anterior wall retractor was placed between the labrum and the anterior capsule so that the anterior capsule would prevent capturing and pinching the femoral nerve anteriorly. An additional retractor was placed on the posterior wa ll. External rotation and traction were applied through the Mcroberts table so that the cut surface of the femoral neck would not restrict access to the acetabulum. The labrum was excised sharply and the pulvinar was excised with electrocautery to limit bleeding from branches of the obturator artery. Acetabular reamers were selected based on preoperative templating and measurements of the excised femor al head. These were introduced into the acetabulum. Fluoroscopy was utilized to replicate a standing AP pelvis radiograph by centering over the pelvis, rotating until there was appropriate symmetry between the obturator foramen, and introducing caudal tilt to match the position of the pubic symphysis relative to the sacrococcygeal junction according to the patient?s anatomy. Fluoroscopy was utilized to ensure appropriate reaming depth. Once satisfied with the reaming depth corresponding to the preoperative template and the pinch fit between the columns, an appropriate sized acetabular cup was selected which would provide 1 mm of press-fit. This cup was introduced and manipulated until appropriate abduction and anteversion angles were obtained with careful attention to appropriate abduction and anteversion angles as evaluated by the position of the cup relative to the anterior and posterior villanueva of the acetabulum and the AP fluoroscopy which recreated the patient?s standing radiograph. The cup was impacted into place. Peripheral osteophytes were removed. The acetabular liner was then placed with care to ensure locking of the locking mechanism.? Attention was then turned to the femur. All retractors were removed, traction was released, a retractor was placed in the interval between the hip capsule and the gluteus minimus, and the hip was externally rotated to 90 degrees. Traction was applied through the Mcroberts table to tension the lateral capsule and this was released using electrocautery. Traction was released and a Mcroberts hook was placed posteriorly around the proximal femur at the level of the vastus ridge. The table height was lowered in order to restrict the tension on the anterior structures during hip hyperextension to limit the risk of femoral nerve palsy. With traction off and the hip at 90 degrees of external rotation, the hip was hyperextended and adducted while manually elevating the femur away from the acetabulum with the Mcroberts hook to ensure it would not be caught behind the greater trochanter. An asymmetric retractor was placed over the calcar and a broad double-pronged retractor was placed over the greater trochanter. The tag stitch capturing the lateral leaflet of the capsule was moved to the medial side, leaving the conjoined and piriformis tendons isolated in the face of the greater trochanter. The hip was externally rotated and elevated. A release of the conjoined tendon was not necessary in order to obtain adequate exposure for broaching. The canal was opened with an opening broach and a rasp was used to remove cancellous bone. A rongeur was used to remove the residual lateral bone at the base of the greater trochanter to avoid placing the stem in varus. The femur was then broached to the appropriate sized stem yielding good rotational fit and fill of the canal as well as appropriate version of the stem trial. Neck and head trials were placed, all retractors were removed and the hip was returned to neutral abduction and extension. I then reduced the hip. An AP pelvis fluoroscopic image matching the preoperative standing radiograph was obtained with both lesser trochanters visible and both hips in 40 degrees of external rotation. This demonstrated that the operative side was slightly short although it had been longer preoperatively. An AP hip fluoroscopic image was obtained with the hip in neutral rotation which demonstrated appropriate canal fill. Hip stability was evaluated with 90 degrees of external rotation and a 45 degree drop test which demonstrated good stability. The hip was dislocated and I returned to the broaching position. The definitive stem was placed and the trunnion was cleaned and dried. I placed a ceramic head onto the trunnion and impacted it into place on the Mckoy taper.?? All retractors were removed and the hip was reduced. A dilute mixture of betadine and peroxide was used to bathe the soft tissues during final fluoroscopic assessment. Appropriate component positioning was confirmed on an AP pelvis radiograph with the operative and nonoperative legs in 40 degrees of external rotation, evaluating leg length and offset. Appropriate stem fill was evaluated on an AP hip radiograph with the operative leg in neutral rotation. No fractures were identified on these radiographs. Stability was satisfactory with a 90 degree external rotation test as well as a 45 degree drop test. The hip was copiously irrigated with pulse lavage. The capsule was closed with absorbable interrupted suture. The TFL fascia was closed with barbed suture while carefully protecting the lateral femoral cutaneous nerve from entrapment. A mixture of Ropivacaine, Epinephrine, Clonidine and Toradol was infiltrated throughout the soft tissues. The skin was closed with 2-0 and 3-0 sutures. Surgical glue was applied and a soft dressing was placed.??The sponge, instrument and needle counts were reported as being correct at the end of the case.??No obvious complications occurred. The patient was transferred from the Mcroberts table back to a stretcher. The patient emerged from anesthesia without difficulty and was taken to the PACU in a stable condition.? Plan for aftercare: * Anterior hip precautions * Weightbearing as tolerated * Mobilization as soon as the patient has recovered from anesthesia. If physical therapists are unavailable at the time the patient is ready to ambulate, then nursing staff should help patient ambulate * Aspirin 81 twice per day for DVT prophylaxis * Multimodal pain regimen with no IV opioids ordered * Anticipate discharge home today * Follow up at [facility] in 2 weeks * Detailed postoperative instructions available at [email or web address]
[2023-09-27] MEDS: TRAMADOL 50 MG TABLET PO (14:19)
--- NOTE | 2023-09-27 16:55 | SUR.PHASEII ---
Patient up to the bathroom x2, unable to void. Bladder scan showed 482mls. JERARDO Webb, notified. Flomax ordered by JERARDO and in and out cath and transfer to the floor if patient continues to be unable to void.
[2023-09-27] MEDS: TAMSULOSIN 0.4 MG CAPSULE PO (17:03)
--- NOTE | 2023-09-27 17:45 | SUR.PHASEII ---
Pt transferred to room 214 in stretcher by this RN. SBAR report to Renetta MATTHEW. Pt able to walk to BR to chair with walker. Plan for pt to attempt to void after dinner and then straight cath if unable to void. Pt and and Renetta MATTHEW in agreement with plan.
[2023-09-27] MEDS: IBUPROFEN 600 MG TABLET PO ×2 (18:26→23:48)
[2023-09-27] MEDS: ACETAMINOPHEN 325 MG TABLET 650 MG PO ×2 (18:27→23:48)
[2023-09-27] MEDS: LACTATED RINGERS 1,000 ML 100 ML IV (18:31)
--- NOTE | 2023-09-27 18:35 | PC.NURSE ---
Addendum entered by Laurel Bond R.N. 09/27/23 18:57: patient straight cath's for 900 ml Original Note: Patient arrived to room 214 this evening at 1725. VSS, afebrile on RA. He is able to ambulate with SBA using FWW, denies dizziness. Aquacel to L hip C/d/I. He tolerates dinner and encouraged to drink copious liquids. He feels an urge to void but is unable after x3 times, and PVR >480cc. He is straigth cath'd this evening. LR IVF at 100 ml/hr, antibiotics cefazolin administered, call light in reach, bed alarm on, urinal in reach, continuous pulse ox monitoring, encouraged IS use, and frequent rounding.
--- NOTE | 2023-09-27 19:56 | PM.PN.1 ---
Subjective Subjective Interval history: Patient remaining in hospital overnight. Ambulated with Physical therapy and cleared physical therapy but has not yet urinated. Reports having no pain. Has already received a dose of Flomax. Continue with Flomax. Hope for a spontaneous voiding prior to discharge. If unable to void, we could consider discharge with a Wright catheter in place with urology follow up for voiding trials. We will continue working on spontaneous voiding and oral fluid intake in the meantime. Exam Vital Signs (past 8 hours): - 09/27/23 13:05 09/27/23 13:10 09/27/23 13:15 Temperature 97.6 F Pulse Rate 74 68 63 Respiratory Rate 16 16 16 Blood Pressure 112/66 105/66 102/65 Pulse Oximetry 100 99 98 Oxygen Delivery Method Room Air Room Air Room Air 09/27/23 13:20 09/27/23 13:26 09/27/23 13:30 Temperature 97.5 F L Pulse Rate 62 60 64 Respiratory Rate 17 16 17 Blood Pressure 105/64 101/57 L 101/56 L Pulse Oximetry 95 100 100 Oxygen Delivery Method Room Air Room Air Room Air 09/27/23 13:35 09/27/23 13:40 09/27/23 14:11 Temperature 96.8 F L Pulse Rate 60 58 L 61 Respiratory Rate 18 16 Blood Pressure 111/67 116/65 127/66 Pulse Oximetry 100 100 94 Oxygen Delivery Method Room Air Room Air Room Air 09/27/23 15:00 09/27/23 15:30 09/27/23 17:10 Temperature 97 F L 86.2 F L 97.1 F L Pulse Rate 69 75 70 Respiratory Rate 16 16 16 Blood Pressure 121/73 120/68 114/69 Pulse Oximetry 98 92 98 Oxygen Delivery Method Room Air Room Air Oxygen Delivery Method Room Air [facility] Medical History (Updated 09/19/23 @ 14:15 by Nika Byrne RN) Preoperative cardiovascular examination Bilateral hip pain Left knee pain Medicare annual wellness visit, subsequent Nephrolithiasis Left foot pain Atypical nevi Lipoma Well adult exam Osteoarthritis Hyperlipidemia Routine history and physical examination of adult Ear pain Weight loss Skin lesion Wears glasses Headache (~2018) Shoulder pain (~1989) Chicken pox Kidney stones (~2016) Chronic lower back pain Surgical History (Updated 09/19/23 @ 14:08 by Nika Byrne RN) History of carpal tunnel surgery of right wrist (2022) H/O left wrist surgery (2003) History of orthopedic surgery (06/02/22) History of lithotripsy Anesthesia Ruptured spleen (~1971) History of hernia surgery History of knee surgery (~2000) History of hand surgery (~2004) History of shoulder surgery Family History Father Lung cancer Mother Stroke Brother Cancer Grandmother Stroke Social History household members: spouse Smoking Status: Never smoker alcohol intake: current substance use type: does not use
[2023-09-27] MEDS: DOCUSATE 100 MG CAPSULE PO (21:09)
[2023-09-27] MEDS: ASPIRIN EC 81 MG TABLET PO (21:09)
[2023-09-28] MEDS: CEFAZOLIN 2 GM/100 ML PREMIX 100 ML IV (02:35)
[2023-09-28] MEDS: IBUPROFEN 600 MG TABLET PO (05:00)
[2023-09-28] MEDS: ACETAMINOPHEN 325 MG TABLET 650 MG PO (05:00)
[2023-09-28 05:21] LABS: Hematocrit 34.9 % (41-53); Hemoglobin 11.8 g/dL (13.5-17.5)
[2023-09-28 06:14] VITALS: BP 103/54; PULSE 54; RESP 18; TEMP 35.9; O2SAT 95
[2023-09-28] MEDS: ASPIRIN EC 81 MG TABLET PO (08:20)
[2023-09-28] MEDS: CYANOCOBALAMIN (VITAMIN B-12) 100 MCG TABLET PO (08:20)
[2023-09-28] MEDS: DOCUSATE 100 MG CAPSULE PO (08:20)
[2023-09-28] MEDS: MULTIVITAMIN 1 TABLET 1 TAB PO (08:21)
[2023-09-28 08:55] VITALS: BP 104/64; PULSE 54; RESP 16; TEMP 36.3; O2SAT 98
--- NOTE | 2023-09-28 09:43 | OT.IP.EVAL ---
Current Diagnoses Unilateral primary osteoarthritis, left hip (09/27/23) Surgery Performed Operation Date: 09/27/23 10:45 Actual Procedures p Total Hip Arthroplasty/Anterior Approach(Left) - Delta Llamas MD Past Medical History (Last Updated 09/18/23 @ 17:50 by Clayton Morales DO) Atypical nevi Bilateral hip pain Chicken pox Chronic lower back pain Ear pain Headache (~2018) Hyperlipidemia Kidney stones (~2016) Left foot pain Left knee pain Lipoma Medicare annual wellness visit, subsequent Nephrolithiasis Osteoarthritis Preoperative cardiovascular examination Routine history and physical examination of adult Shoulder pain (~1989) Skin lesion Wears glasses Weight loss Well adult exam Surgical History (Last Updated 09/19/23 @ 14:04 by Nika Byrne RN) Anesthesia H/O left wrist surgery (2003) History of carpal tunnel surgery of right wrist (2022) History of hand surgery (~2004) History of hernia surgery History of knee surgery (~2000) History of lithotripsy History of orthopedic surgery (06/02/22) History of shoulder surgery Ruptured spleen (~1971) Occupational Therapy Inpatient Evaluation/Re-Eval M1 PT/OT-IP Prior Functional Status Start: 09/28/23 09:44 Freq: NEEDED Status: Active Protocol: Document 09/28/23 09:44 [facility] (Rec: 09/28/23 09:54 [facility] [id number]) Medical Review Prior Functional Status Communication Independent Mobility and Gait Independent but had pain going downstairs. Activities of Daily Living and IADL's Able to do with pain. Social History Household Members spouse Living Arrangements House Number of Stairs To Enter/Railing? Pt has 3 steps with wide railings. Home Environment Standard Height Toilet,Tub/ Shower Home Equipment Front Wheel Walker,Straight Cane,Shower Seat with Backrest ,Hand Held Shower,Long Handled Sponge,Documentation Billing Clerk,Sock Aid Additional Social History Comment Pt has a leg software intern and toilet safety frame for his low toilet. Pt to sleep on the main level. M2 OT-IP Current Condition Start: 09/28/23 09:44 Freq: Status: Active Protocol: Document 09/28/23 09:44 [facility] (Rec: 09/28/23 09:54 [facility] [id number]) Occupational Therapy Current Condition Current Condition Evaluation Date 09/28/23 Treatment Diagnosis S/P L CARMEN anterior M3 OT- IP Subjective and Pain Start: 09/28/23 09:44 Freq: Status: Active Protocol: Document 09/28/23 09:44 [facility] (Rec: 09/28/23 09:54 [facility] [id number]) OT- Subjective Occupational Therapy Visit Type Type Initial Evaluation Visit Start Time 09:00 Visit Stop Time 09:43 Occupational Therapy Visit Comments Patient Comments Pt agreed to do OT eval and pt 's present in the room. Patient/Caregiver Goals TO go home. OT Pain Assessment Pain When Pain Assessed At Rest Pain Present Pain Present Pain Reported Location Left Hip Intensity 2 Scale Used Numeric (0 - 10) M4 OT- IP ADL's Start: 09/28/23 09:44 Freq: Status: Active Protocol: Document 09/28/23 09:44 [facility] (Rec: 09/28/23 09:54 [facility] [id number]) OT IBC-Pofy-Wnxmjht General Evaluation Self-Feeding Ability Independent OT ADL-Grooming Comments OT Grooming Comments Not performed. OT ADL-Oral Care Comments Oral Care Comments NOt performed. OT ADL-Dressing General Eval Upper Body Dressing Ability Independent Lower Body Dressing Ability Moderate Assistance Areas Needing Assistance Socks,Shoes Comments OT Dressing Comments Able to go over use of LB dressing equipment with pt. At this time pt's assisting him. Educated to dress the LLE first and take out last. Also to be mindful of his LLE positioning during ADL needs. OT ADL-Toileting Comments OT Toileting Comments Pt not having to go. To bring the urinal home. OT ADL-Bathing Comments OT Bathing Comments Not performed. Educated pt on care for bandage needs for showering. M5 OT- IP IADL's Start: 09/28/23 09:44 Freq: Status: Active Protocol: Document 09/28/23 09:44 [facility] (Rec: 09/28/23 09:54 [facility] [id number]) OT-Instrumental Activities of Daily Living Deficits IADL Deficits Identified Deficits Home Safety Awareness Awareness of Need for Assistance at Home Good Awareness Ability to Problem Solve Emergency Able to Problem Solve Situations Medication Management Medication Management No Deficits Identified Money Management Money Management No Deficits Identified Meal Preparation Meal Preparation Caregiver Provides Assist Wood Room Hand Wood Room Hand Caregiver Provides Assist M6 OT- IP Functional Cognition Start: 09/28/23 09:44 Freq: Status: Active Protocol: Document 09/28/23 09:44 [facility] (Rec: 09/28/23 09:54 [facility] [id number]) Cognitive Factors Limiting Selfcare Function Cognitive Ability Level of Alertness Alert Patient Orientation Name,Age,Birthday,Month,Date, Year,Day of Week,Place, Situation Attention Span Ability Capable of Focused Attention, Capable of Sustained Attention Ability to Follow Commands Able to Follow Multi-Step Commands Memory Description No Deficits Noted Safety Awareness No Deficits Noted Cognitive Comments Cognitive Assessment Comments Pt has good awareness of his hip precautions for ADL and mobility needs. OT- Vision and Hearing OT- Hearing Assessment OT- Hearing Assessment WFL OT- Vision Assessment Visual Acuity Glasses For Reading Visual Attentiveness WFL Occular Pursuits WFL M7 OT- IP Mobility and Balance Start: 09/28/23 09:44 Freq: Status: Active Protocol: Document 09/28/23 09:44 [facility] (Rec: 09/28/23 09:54 [facility] [id number]) OT- Bed Mobility Assessment Rolling Level of Assistance Standby Assistance Supine to Sit Supine to Sit Assist Standby Assistance OT-Transfer Assessment Sit to and From Stand Sit to and from Stand Standby Assistance Transfers Transfer Ability Standby Assistance Technique Transfer Destination Bed,Chair Transfer Technique Stand Step Pivot Devices Transfer Assistive Devices Gait Belt,Front Wheeled Walker Comments Mobility Comments Pt's educated how to jyoti /doff the gait belt and assist pt for transfer needs with good safety. Cues for pt to push up on the bed to stand. OT- Balance Assessment Sitting Balance and Reactions Static Sitting Balance Ability Normal Dynamic Sitting Balance Ability Good Standing Balance and Reactions Static Standing Balance Ability Good Dynamic Standing Balance Ability Fair M8 OT- IP Objective Assessments Start: 09/28/23:44 Freq: Status: Active Protocol: Document 09/28/23 09:44 [facility] (Rec: 09/28/23 09:54 [facility] [id number]) OT Gross Range of Motion Upper Extremity Range of Motion Assessment Within Functional Limits OT Strength Upper Extremity Strength Assessment Within Functional Limits M9 OT- IP Assessment and Plan Start: 09/28/23 09:44 Freq: Status: Active Protocol: Document 09/28/23 09:44 [facility] (Rec: 09/28/23 09:54 [facility] [id number]) OT Summary Assessment and Plan Potential Rehabilitation Potential Excellent Analytic Complexity at Evaluation Low Summary OT Impairments Pain,Strength,Balance, Functional Mobility,Dressing, Toileting,Bathing,Shower Transfers Progress Towards Goals Progressing Toward Goals Assessment Summary Pt low complexity and main barriers are pain, steps, and will have a supportive to assist for his needs. Pt had a youth walker and able to get orders for a adult FWW for pt. Pt to go home with assist when medically stable and suggested to have his outpt PT moved up earlier as currently schedule for the 1st week of October. Goals Grooming Goal Independent Dressing Goal Independent,Documentation Billing Clerk,Sock Aid Toileting Goal Independent Bathing Goal Standby Assistance Toilet Transfer Goal Independent Shower Transfer Goal Standby Assistance Days to Meet Goals 5 Frequency of Treatment Frequency Of Treatment Once a Day Treatment Plan OT Treatment Plan ADL Training,Functional Mobility,Patient/Family Education,Discharge Planning Discharge Recommendations OT Discharge Recommendations Home with Assistance, Outpatient PT Transportation Needs at Discharge Private Vehicle
--- NOTE | 2023-09-28 10:12 | PT.IIE ---
Current Diagnoses Unilateral primary osteoarthritis, left hip (09/27/23) Surgery Performed Operation Date: 09/27/23 10:45 Actual Procedures p Total Hip Arthroplasty/Anterior Approach(Left) - Delta Llmaas MD Surgical History (Last Updated 09/19/23 @ 14:04 by Nika Byrne RN) Anesthesia H/O left wrist surgery (2003) History of carpal tunnel surgery of right wrist (2022) History of hand surgery (~2004) History of hernia surgery History of knee surgery (~2000) History of lithotripsy History of orthopedic surgery (06/02/22) History of shoulder surgery Ruptured spleen (~1971) Medical History (Last Updated 09/18/23 @ 17:50 by Clayton Morales DO) Atypical nevi Bilateral hip pain Chicken pox Chronic lower back pain Ear pain Headache (~2018) Hyperlipidemia Kidney stones (~2016) Left foot pain Left knee pain Lipoma Medicare annual wellness visit, subsequent Nephrolithiasis Osteoarthritis Preoperative cardiovascular examination Routine history and physical examination of adult Shoulder pain (~1989) Skin lesion Wears glasses Weight loss Well adult exam Physical Therapy Inpatient Evaluation/Re-Eval M1 PT/OT-IP Prior Functional Status Start: 09/28/23 09:44 Freq: NEEDED Status: Active Protocol: Document 09/28/23 10:05 [facility] (Rec: 09/28/23 10:12 [facility] [id number]) Medical Review Prior Functional Status Medical History Reviewed Yes Diet/Fluid Consistency Regular Communication Independent Mobility and Gait Independent but had pain going downstairs. Activities of Daily Living and IADL's Able to do with pain. Social History Household Members spouse Living Arrangements House Number of Floors (Floors) One Floor Number of Stairs To Enter/Railing? Pt has 3 steps with wide railings. Home Environment Standard Height Toilet,Tub/ Shower Home Equipment Front Wheel Walker,Straight Cane,Shower Seat with Backrest ,Hand Held Shower,Long Handled Sponge,Outboard Motorboat Rigger,Sock Aid Additional Social History Comment Pt has a leg bottle house pumper and toilet safety frame for his low toilet. Pt to sleep on the main level. M2 PT-IP Current Condition Start: 09/28/23 09:48 Freq: NEEDED Status: Active Protocol: Document 09/28/23 10:05 [facility] (Rec: 09/28/23 10:12 [facility] [id number]) Physical Therapy Current Condition Current Condition Evaluation Date 09/28/23 Treatment Diagnosis L anterior CARMEN Onset Date 09/27/23 M3 PT-IP Subjective Start: 09/28/23 09:48 Freq: NEEDED Status: Active Protocol: Document 09/28/23 10:05 [facility] (Rec: 09/28/23 10:12 [facility] [id number]) Subjective Physical Therapy Visit Type Type Initial Evaluation Visit Start Time 09:48 Visit Stop Time 10:00 Number of SKID WORKER Visits 0 Physical Therapy Visit Comments Patient Comments Pt is agreeable to PT. Patient Goals To go home. He starts OPPT on Monday. Therapy Pain Assessment Pain When Pain Assessed At Rest Pain Present Pain Present Pain Reported Location Left Hip Intensity 1 Scale Used Lakesha (Faces) M4 PT-IP Mobility and Gait Start: 09/28/23 09:48 Freq: NEEDED Status: Active Protocol: Document 09/28/23 10:05 [facility] (Rec: 09/28/23 10:12 [facility] [id number]) PT-Bed Mobility Assessment Rolling Type of Rolling Roll to Right,Roll to Left Level of Assist Independent Supine to Sit Supine to Sit Independent Sit to Supine Sit to Supine Independent Scooting Scooting to Edge of Bed Independent PT-Transfer Assessment Sit to and From Stand Sit to and from Stand Independent Equipment Transfer Assistive Device Gait Belt,Front Wheeled Walker Orthotic/Prosthetic Devices or Brace: No Transfers Transfer Destination Bed Transfer Technique Stepping Transfer Ability Level of Assist Independent Comments Mobility Comments Pt uses his hands to move his LLE with bed mobility Gait Assessment Gait Gait Assistance Required: Independent Distance (Feet) 100 Able to Maintain Weight Bearing Status Yes During Gait Assistive Devices Assistive Device Gait Belt,Front Wheeled Walker Orthotic/Prosthetic Devices or Brace: No Gait Deviations General Gait Pattern Antalgic,Decreased Stride Length Factors Limiting Gait Function Factors Limiting Gait Function Decreased Strength,Pain Comments Gait Comments Pt with antalgic, step-to gait pattern occ and he has good poncho and use of RW Stair Climbing Assessment Evaluation Level of Assist On Stairs Standby Assistance,1 Person Assistance Devices Stair Climbing Assistive Devices Left Railing Technique/Endurance Stair Climbing Direction Ascend and Descend Stair Climbing Technique Step to Step Number of Steps Climbed 3 Query Text: Stair Climbing Set # Repetitions (reps) 1 Comments Stair Climbing Comments Pt faces left rail and puts both hands on the rail. Step- to pattern with right and then left foot ascend and reverse to descend. PT-Balance Assessment Sitting Balance and Reactions Static Sitting Balance Ability Good Dynamic Sitting Balance Ability Good Standing Balance and Reactions Static Standing Balance Ability Good Dynamic Standing Balance Ability Good Device Used RW M5 PT-IP Objective Assessments Start: 09/28/23 09:48 Freq: NEEDED Status: Active Protocol: Document 09/28/23 10:05 MB (Rec: 09/28/23 10:12 MB [id number]) Orientation Orientation/Cognition Level of Alertness Alert Orientation Name,Age,Birthday,Month,Date, Year,Day of Week,Place, Situation Language Function Ability No Deficits Noted Safety Awareness Understands Safety Issues Memory Description No Deficits Noted Gross Range of Motion Upper Extremity ROM Assessment Within Functional Limits Lower Extremity ROM Assessment Left Impaired Impairments L hip weakness post-op, limited range with ER and extension limited with precautions Strength Lower Extremity Strength Assessment Left Impaired Hip NT post-op Knee Functional Ankle Functional M6 PT-IP Treatment Start: 09/28/23 09:48 Freq: NEEDED Status: Active Protocol: Document 09/28/23 10:05 MB (Rec: 09/28/23 10:12 MB [id number]) Physical Therapy Treatment Education Education Provided Precautions,Weight Bearing Status,Safety Other Treatments Other Treatment Performed Packet provided by OT M7 PT-IP Assessment and Plan Start: 09/28/23 09:48 Freq: NEEDED Status: Active Protocol: Document 09/28/23 10:05 MB (Rec: 09/28/23 10:12 MB [id number]) PT Summary Assessment and Plan Potential Rehabilitation Potential Good Status of Condition at Evaluation Evolving Summary Impairments Pain,ROM,Strength,Balance Progress Towards Goals Safe For Discharge Assessment Summary Pt is a pleasant 68 y/o male presenting with left hip decreased range, strength and reports of pain that are expected post-op left anterior CARMEN last date. He is doing well with acute care mobility and is I with transfers, bed mobility and gait with RW. He requires superv/CGA to ascend and descend three steps with left rail. He has support at home and she is present during assessment today. He has OPPT set-up for Monday. No further acute PT needs. Frequency of Treatment Frequency Of Treatment Discharge Precautions Anterior Hip Precautions No Hip Extension,No Hip External Rotation Weight Bearing Status Weight Bearing Status Weight Bear as Tolerated Recommendations To Nursing Amount of Assist Needed Standby Assistance Discharge Recommendations PT Discharge Recommendations Home with Assistance, Outpatient PT Transportation Needs at Discharge Private Vehicle
--- NOTE | 2023-09-28 10:26 | P.DS_ITS ---
History of Present Illness History of Present Illness Chief complaint: Left CARMEN Anterior *OPB* Narrative: Edgar is a pleasant 68 year old male who is POD#1 s/p a left CARMEN with Dr. Llamas. Reports he is doing well over all and feels ready to be d/c to home. He was prepared to be d/c to home yesterday after surgery as he passed PT evaluation yesterday in PACU however he was unable to urinate on his own and therefore had to be cathed last night and was admitted to the floor. He was started on Flomax last night. Today he has been able to void on his own several times. Plans to be d/c to home with his who is willing and able to aid patient with recovery in the immediate post-op period. Has walker at home, has outpatient PT appointments set up at [facility] already. Has three steps up to his home but no steps inside, he feels confident with being able to make it up the three steps with his wifes assistance. Denies chest pain, SOB, fever, chills, nausea, vomiting. Operative Date/Time/Diagnoses Date of procedure: 09/27/23 Pre-op diagnosis: Left hip arthritis Post-op diagnosis: same Procedure & Clinicians Procedure: Left total hip arthroplasty (39576) Same procedure as scheduled: Yes Surgeon: Delta Llamas Lens Edger: Ashutosh Christianson Anesthesia Type: General, Spinal and Local Operative Notes Estimated Blood Loss (mL): 500 Procedure in detail: Implants: Depuy Total Hip Arthroplasty: * Depuy Hart Gription size 56 cup? * Depuy Actis femoral stem size 6 high offset? * 36 mm +5 ceramic femoral head? Discharge Providers Provider Discharge Date: 09/28/23 Primary care physician: Clayton Morales DO Consults: 09/27/23 06:00 Consult to Anesthesiology Routine Comment: Consulting Provider: Anesthesiologist Reason for consultation: Regional block for post operative pain control 09/27/23 14:03 Consult to Discharge Planning Routine Comment: Consult to Occupational Therapy Evaluate & Treat Comment: Physician Instructions: Evaluate and treat Consult to Physical Therapy Evaluate & Treat Comment: Physician Instructions: post op CARMEN protocol 09/28/23 09:28 Consult to Physical Therapy Evaluate & Treat Comment: Physician Instructions: FWW for home use Discharge provider: Olena Christensen PA-C Summary Hospital Course Discharge Diagnosis: Left hip OA s/p left total hip arthroplasty Hospital Course: Hospital course complicated by acute urinary retention s/p orthopedic procedures, resolved now. Exam Vital Signs (past 8 hours): - 09/28/23 06:14 09/28/23 08:55 Temperature 96.7 F L 97.4 F L Pulse Rate 54 L 54 L Respiratory Rate 18 16 Blood Pressure 103/54 L 104/64 Pulse Oximetry 95 98 Oxygen Flow Rate 0 Oxygen Delivery Method Room Air Oxygen Flow Rate 0 Const General: cooperative, healthy appearing and comfortable Chest Other: Extremities appear well perfused. Resp Effort & Inspection: normal respiratory effort and able to speak in complete sentences Skin General: no rashes or lesions noted Other: Clean and dry Aquacel dressing intact over left anterior hip Neuro General: patient alert, patient awake and patient oriented x3 Extrem Other: Grossly normal alignment. 5/5 strength with DF, PF, EHL. Good AROM of left knee, nontender to palpation. Sensation intact throughout bilateral lower extremities. Calf is soft, compressible and nontender bilaterally. Psych Appearance: grossly normal Objective Labs 09/28/23 04:46 Labs: Laboratory Results - last 24 hr 09/28/23 04:46 Hgb 11.8 L Hct 34.9 L PFSH Medical History (Updated 09/19/23 @ 14:15 by Nika Byrne RN) Preoperative cardiovascular examination Bilateral hip pain Left knee pain Medicare annual wellness visit, subsequent Nephrolithiasis Left foot pain Atypical nevi Lipoma Well adult exam Osteoarthritis Hyperlipidemia Routine history and physical examination of adult Ear pain Weight loss Skin lesion Wears glasses Headache (~2018) Shoulder pain (~1989) Chicken pox Kidney stones (~2016) Chronic lower back pain Surgical History (Updated 09/19/23 @ 14:08 by Nika Byrne RN) History of carpal tunnel surgery of right wrist (2022) H/O left wrist surgery (2003) History of orthopedic surgery (06/02/22) History of lithotripsy Anesthesia Ruptured spleen (~1971) History of hernia surgery History of knee surgery (~2000) History of hand surgery (~2004) History of shoulder surgery Family History Father Lung cancer Mother Stroke Brother Cancer Grandmother Stroke Social History household members: spouse Smoking Status: Never smoker alcohol intake: current substance use type: does not use Discharge Assessment & Plan Assessment and Plan Assessment: Stable left hip OA s/p left total hip arthroplasty Plan of Treatment: * Plan to d/c to home with this afternoon * Anterior hip precautions. Weightbearing as tolerated * Continue to work on mobilization with outpatient PT * Aspirin 81 twice per day for DVT prophylaxis. Continue multimodal pain regimen. Ice to the hip as needed for additional pain control. * Keep dressing clean and dry. Keep dressing intact for 2 week postop appointment. If dressing becomes dirty or saturated okay to remove and replace with clean dry gauze. No soaking the incision site impulse or tubs. No topical ointments or creams to the incision site. * Follow up at [facility] in 2 weeks * Detailed postoperative instructions available at [email or web address] Discharge Plan Discharge Plan Patient Disposition: Home Provider Discharge Comment: Detailed postoperative instructions available at: [email or web address] Discharge orders & Medications Discharge Orders: Discharge (Order); Ordered 09/28/23 Ordered By: Ashutosh Christianson Prescriptions: Continued vitamin E acetate 1 tab PO DAILY coenzyme Q10 1 tab PO DAILY multivitamin with iron 1 tab PO DAILY cyanocobalamin (vitamin B-12) 1 tab PO DAILY Follow up/Referrals: Clayton Morales DO [Primary Care Provider] - Delta Llamas MD [Physician] - As previously scheduled Diet/Activity/Treatments Diet: Diet as Tolerated Activity: Weight bearing as tolerated, maintain anterior hip precautions. Cold/Heat Therapy: Ice to the joint as needed for pain control. Place a towel or other barrier between you and the ice. Follow your doctor?s instructions for length of use, rest between use. Skin/Wound/Dressing Care Report to your healthcare provider any signs of infection, such as:: chills, fever, night sweats, unusual drainage and unusual redness Dressing: Keep dressing intact until 2 week post-op appointment. Keep dressing clean and dry, if dressing becomes saturated or dirty okay to remove and replace with clean and dry gauze. No soaking the incision site in pools or tubs. No topical lotions, ointments or creams to the incision site. Visit Report/Discharge Packet Instructions: DI for Hip Replacement, DI for Prescription Opioid Use Stand Alone Forms: Patient Portal/API, Surgery Discharge Discharge Data Primary Care Provider: Clayton Morales Attending Provider: Delta Llamas
--- NOTE | 2023-09-28 11:04 | PC.NURSE ---
Patient is A&OX4, VSS, afebrile. He denies dizziness, nausea. He reports pain managed well with tylenol and ibuprofen. Aquaphor to R hip c/d/i +CMS to BLE's. He is voiding without diffiulty and tolerates breakfast well. PA at bedside clears him medically for discharge home today with follow up in 2 weeks post operativeley. He verbalizes understanding of medications, site care, activity limitations, s/sx of infection as well as confirmed the date of post op appointment. He is escorted via w/ch to private vehicle with his for discharge home at 1035 a.m. with all of his belongings.
--- NOTE | 2023-09-28 14:57 | CM.DANOTE ---
Initial DCP Assessment Note Pt is a 68 yo male, resident of [place], now POD#1 from left CARMEN surgery by Dr Llamas PCP: Clayton Morales Payer: [employer] out of [facility] Reviewed chart, pt discussed in multidisciplinary rounds this morning. Therapy has cleared pt for return home w/family to assist and pt has planned for home, DC order from Ortho has already been initiated this morning. No barriers identified at this time to patient's safe discharge home w/family to assist; close outpatient f/u recommended. CM team will plan to follow closely in case any DC needs or concerns arise. 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 Yes Advance Directives on File Yes History Provided By Patient,Significant Other, Medical Record Prior Living Arrangements House Household Members spouse Type of transporation used prior to Drives own vehicle admit Independent with ADL's Yes Is patient alert and oriented? Yes Patient/Family Preference OP PT Therapy Barriers to Discharge No Discharge Plan Home Transportation Arrangement Family Referrals Initiated None needed
== END 2023-09-28 10:35 | disposition home or self-care (01) ==
LOC: OR 08:52 → AC 08:52
PROVIDERS: PCP Family Medicine; Referring Provider Family Medicine; Visit Provider Orthopaedic Surgery Adult Reconstructive Orthopaedic Surgery
PROC: (CPT 27130; principal; 2023-09-27 10:45)
DX: M16.12 Unilateral primary osteoarthritis, left hip (principal)
CPT/HCPCS: 27130; 36415; 73502; 76000; 85014; 85018; 97161; 97165; 97530; 97535; C1776; J0690; J1100; J2250; J2405; J2704; J3010

== ENCOUNTER → 2024-07-16 06:51 | Outpatient (CLI) | payer MEDICARE, BC, SELFPAY ==
[2023-09-27 17:45] VITALS: BMI 23.3
[2024-07-16 08:01] LABS: Add Manual Diff / Slide Review NO; Basophils Absolute Auto 0 /uL (0-100); Basophils Percent Auto 0.9 % (0-2); Eosinophils Absolute Auto 200 /uL (0-450); Hematocrit 39.3 % (41-53); Hemoglobin 13.3 g/dL (13.5-17.5); Lymphocytes Absolute Auto 2000 /uL (1100-4500); Mean Corpuscular Hemoglobin 32.6 PG (26-34); Mean Corpuscular Volume 95.9 fL (80-100); Monocytes Absolute Auto 700 /uL (0-900); Monocytes Percent Auto 13.9 % (3-14); Neutrophils Absolute Auto 1900 /uL (1500-7000); Neutrophils Percent Auto 39.2 % (50-75); Platelet Count 364 X10^3/uL (150-400); Red Blood Cell Count 4.09 X10^6/uL (4.5-5.9); Red Cell Distribution Width 13.8 % (11.6-14.8)
[2024-07-16 08:21] LABS: HEMOLYSIS < 15 (0-50); Iron 87 ug/dL (49-181)
[2024-07-16 08:43] LABS: HEMOLYSIS < 15 (0-50)
[2024-07-16 08:58] LABS: Prostate Specific Antigen Scrn 0.688 ng/mL (0.1-4.0)
[2024-07-16 09:09] LABS: Vitamin B12 720 pg/mL (239-931)
[2024-07-16 10:18] LABS: Alanine Aminotransferase 24 IU/L (<50); Albumin 4.1 g/dL (3.5-5.0); Albumin Globulin Ratio 1.5 (1.0-2.8); Alkaline Phosphatase 57 U/L (38-126); Aspartate Aminotransferase 38 IU/L (17-59); BUN Creatinine Ratio 28.2 (6-22); Bilirubin Total 0.5 mg/dL (0.2-1.3); Blood Urea Nitrogen 24 mg/dL (9-20); Calcium 9.4 mg/dL (8.4-10.2); Carbon Dioxide 26 mmol/L (22-32); Chloride 105 mmol/L (98-107); Cholesterol 254 mg/dL (140-199); Estimated Glomerular Filt Rate > 60 mL/min (>60); Globulin 2.7 g/dL (1.7-4.1); Glucose 96 mg/dL (80-110); HDL Cholesterol 76 mg/dL (40-60); LDL Cholesterol Calculated 167 mg/dL (<100); Potassium 4.6 mmol/L (3.4-5.1); Sodium 137 mmol/L (137-145); Total Protein 6.8 g/dL (6.3-8.2); Triglycerides 56 mg/dL (35-150)
[2024-07-16 10:36] LABS: Percent Iron Saturation 25 % (20-50); Total Iron Binding Capacity 350 ug/dL (261-462); Transferrin 318 mg/dL (206-381)
== END ==
PROVIDERS: PCP Family Medicine; Referring Provider Family Medicine; Visit Provider Family Medicine
DX: D51.3 Other dietary vitamin B12 deficiency anemia (principal); E78.2 Mixed hyperlipidemia; Z12.5 Encounter for screening for malignant neoplasm of prostate; Z00.00 Encounter for general adult medical examination without abnormal findings
CPT/HCPCS: 36415; 80053; 80061; 82607; 83540; 83550; 85025; G0103

== ENCOUNTER → 2024-12-03 06:54 | Outpatient (CLI) | payer MEDICARE, SELFPAY ==
[2024-07-31 13:45] VITALS: BMI 23.3
[2024-12-03 08:17] LABS: Alanine Aminotransferase 25 IU/L (<50); Albumin 4.2 g/dL (3.5-5.0); Albumin Globulin Ratio 1.6 (1.0-2.8); Alkaline Phosphatase 63 U/L (38-126); Aspartate Aminotransferase 40 IU/L (17-59); BUN Creatinine Ratio 21.3 (6-22); Bilirubin Total 0.8 mg/dL (0.2-1.3); Blood Urea Nitrogen 19 mg/dL (9-20); Calcium 9.5 mg/dL (8.4-10.2); Carbon Dioxide 27 mmol/L (22-32); Chloride 103 mmol/L (98-107); Cholesterol 207 mg/dL (140-199); Estimated Glomerular Filt Rate > 60 mL/min (>60); Globulin 2.6 g/dL (1.7-4.1); Glucose 101 mg/dL (80-110); HEMOLYSIS < 15 (0-50); Potassium 4.6 mmol/L (3.4-5.1); Sodium 137 mmol/L (137-145); Total Protein 6.8 g/dL (6.3-8.2); Triglycerides 52 mg/dL (35-150)
[2024-12-03 08:57] LABS: HDL Cholesterol 74 mg/dL (40-60); LDL Cholesterol Calculated 123 mg/dL (<100)
== END ==
PROVIDERS: PCP Family Medicine; Referring Provider Family Medicine; Visit Provider Family Medicine
DX: E78.5 Hyperlipidemia, unspecified (principal); G89.29 Other chronic pain; M54.59 Other low back pain
CPT/HCPCS: 36415; 80053; 80061

== ENCOUNTER 2025-02-06 09:48 | Day surgery (SDC) | payer MEDICARE, BC, SELFPAY ==
[2024-07-31 13:45] VITALS: BMI 23.3
--- NOTE | 2025-02-06 | PATH_ITS ---
[facility] Accession Number: [id number] No. of containers..01 Tissue . 01 Material submitted: . colon - ASCENDING POLYP . 01 Diagnosis: ASCENDING POLYP: Tubular adenoma. STO 02/12/2025 1516 Local . 01 Electronically signed: . Romulo Patel MD, Pathologist NPI- [id number] . 01 Gross description: . ASCENDING POLYP: Received in formalin are 2 fragment(s) of alvarado, soft tissue measuring 0.1 x 0.1 x 0.1 cm to 0.6 x 0.4 x 0.3 cm submitted entirely in 1 cassette(s) /ROCIO 02/12/2025 1516 Local . 01 Pathologist provided ICD-10: D12.2 . 01 CPT . 311753 Specimen Comment: A courtesy copy of this report has been sent to [phone] Performed at: [address] [facility] [id number] MD Romulo Patel MD Phone: [phone]
[2025-02-06 10:56] VITALS: BP 123/70; PULSE 56; RESP 15; TEMP 36.7; O2SAT 99
--- NOTE | 2025-02-06 11:07 | PM.HP.IH.1 ---
History of Present Illness History of Present Illness Date Patient Seen: 02/06/25 Time Patient Seen: 11:08 Chief complaint: Screening Colonoscopy Narrative: Edgar is a 70-year-old man who presents for a colonoscopy. He believes his last one was about 10 years ago. He does not recall having polyps removed. No family history of colon cancer. [facility] Medical History Anemia, B12 deficiency Preoperative cardiovascular examination Bilateral hip pain Left knee pain Medicare annual wellness visit, subsequent Nephrolithiasis Left foot pain Atypical nevi Lipoma Well adult exam Osteoarthritis Hyperlipidemia Routine history and physical examination of adult Ear pain Weight loss Skin lesion Wears glasses Headache (~2018) Shoulder pain (~1989) Chicken pox Kidney stones (~2016) Chronic lower back pain Surgical History History of hip replacement, total History of carpal tunnel surgery of right wrist (2022) H/O left wrist surgery (2003) History of orthopedic surgery (06/02/22) History of lithotripsy Anesthesia Ruptured spleen (~1971) History of hernia surgery History of knee surgery (~2000) History of hand surgery (~2004) History of shoulder surgery Family History Father Lung cancer Mother Stroke Brother Cancer Grandmother Stroke Social History household members: spouse Smoking Status: Never smoker alcohol intake: current substance use type: does not use Meds Home Medications and Allergies Home Medications ?Medication ?Instructions ?Recorded ?Confirmed ?Type coenzyme Q10 [CoQ-10] 1 tab PO DAILY 09/24/19 12/11/24 History cyanocobalamin (vitamin B-12) 1 tab PO DAILY 09/24/19 12/11/24 History multivitamin with iron 1 tab PO DAILY 09/24/19 12/11/24 History vitamin E acetate 1 tab PO DAILY 09/24/19 12/11/24 History atorvastatin 10 mg tablet 10 mg PO BEDTIME #90 tabs 08/26/24 02/06/25 Rx Allergies Allergy/AdvReac Type Severity Reaction Status Date / Time No Known Drug Allergies Allergy Verified 02/06/25 10:53 Exam Vital Signs (past 8 hours): - 02/06/25 10:56 Temperature 98.0 F Pulse Rate 56 L Respiratory Rate 15 Blood Pressure 123/70 Pulse Oximetry 99 Oxygen Delivery Method Room Air Oxygen Delivery Method Room Air Const General: healthy appearing Assessment & Plan Assessment and plan (1) Colon cancer screening: Status: Acute Assessment & Plan narrative: Colonoscopy Time-Based Coding :: [TOTAL MINUTES] spent with patient and on the chart (including review of chart, obtaining history, exam, reviewing outside data, placing orders, documenting exam and treatment plan, and counseling patient) on [DATE]. PROFEE Pipeman Document charge(s): No
[2025-02-06] MEDS: LACTATED RINGERS 1,000 ML 42 ML IV (11:10)
[2025-02-06 12:03] VITALS: BP 101/64; PULSE 67; RESP 16; TEMP 36.1; O2SAT 98
--- NOTE | 2025-02-06 12:03 | PM.OP.COLON ---
Operative Date/Time/Diagnoses Date of procedure: 02/06/25 Time of procedure: 12:03 Pre-op diagnosis: Colon cancer screening Post-op diagnosis: same Procedure & Clinicians Study performed: Colonoscopy Same procedure(s) as scheduled: Yes Surgeon: Juvenal Barker Procedure Notes Procedure in detail: Surgeon: Juvenal Barker MD Anesthesia: Mike Pelayo D.O. Procedure: The patient was brought to the endoscopy suite, placed in left lateral decubitus position. The patient was connected to monitoring devices. A time-out was performed. Sedation was administered. Once the patient was adequately sedated, a digital rectal exam was performed and was normal. The scope was then inserted and advanced to the cecum where the appendiceal orifice was identified and photographed. The scope was then slowly withdrawn over greater than 6 minutes. The mucosa was thoroughly inspected. A 4 mm polyp was removed from ascending colon with a cold snare. The scope was retroflexed in the rectum. No other abnormalities were found. The scope was straightened and removed. The patient was awakened and brought to recovery. Scope withdrawal time: 8 minutes Sedation time: 19 minutes EBL: 2 mL Findings: 4 mm polyp in the ascending colon Post-procedure Disposition: PACU
[2025-02-06 12:08] VITALS: BP 103/64; PULSE 61; RESP 16; TEMP 36.1; O2SAT 97
[2025-02-06 12:13] VITALS: BP 102/70; PULSE 56; RESP 14; TEMP 36.1; O2SAT 97
[2025-02-06 12:19] VITALS: BP 112/76; PULSE 57; RESP 16; TEMP 36.4; O2SAT 99
== END 2025-02-06 12:35 | disposition home or self-care (01) ==
PROVIDERS: PCP Family Medicine; Referring Provider Surgery; Visit Provider Surgery
PROC: 0DJD8ZZ Inspection of Lower Intestinal Tract, Via Natural or Artificial Opening Endoscopic (ICD-10-PCS; CPT 45378; principal; 2025-02-06 11:00)
DX: Z12.11 Encounter for screening for malignant neoplasm of colon (principal); D12.2 Benign neoplasm of ascending colon
CPT/HCPCS: 45385; J2704